=== PATIENT | female | born 1965 | race Caucasian/White ===

== ENCOUNTER 2021-12-07 10:58 | Emergency (ER) | payer MEDICAID, SELFPAY ==
--- NOTE | ~2021-12-07 | XR_ITS ---
EXAMINATION: XR WRIST, LEFT CLINICAL INFORMATION: Left wrist lump and pain anterior distal radius. COMPARISON: None TECHNIQUE: PA, lateral, scaphoid and oblique views of the left wrist. An arrow points to the lateral wrist. FINDINGS: There is no acute fracture or dislocation. The carpal bones are normally aligned. The distal radius and ulna are intact. An ovoid appearing soft tissue density is seen overlying of the lateral cortical margin of the distal radial metaphysis. XR/XR wrist LT min 3V IMPRESSION: 1. No acute osseous abnormality. 2. Possible soft tissue nodule/cyst overlying the distal radius laterally. Correlate with physical exam. This could be further evaluated with targeted soft tissue ultrasound.
[2021-12-07 11:08] VITALS: BP 164/80; PULSE 74; RESP 16; TEMP 36.8; O2SAT 98; BMI 25.9
--- NOTE | 2021-12-07 13:18 | ED.EXTPRO ---
HPI - Extremity Problem General Chief complaint: Extremity Problem Stated complaint: Lump on wrist Time Seen by Provider: 12/07/21 12:35 Source: patient Mode of arrival: ambulatory Limitations: no limitations History of Present Illness HPI Narrative: 56-year-old female with left volar lump on her wrist that started 6 months ago and recently has become much bigger. It is painful. No trauma. Ibuprofen helps. In addition, patient has itchy rash behind both of her ears and her neck. No new soaps, shampoos, laundry detergent, or medicines. Related Data Previous Rx's Medication Instructions Recorded ibuprofen 600 mg tablet 600 mg PO Q8H PRN #30 tab 12/07/21 triamcinolone acetonide 0.5 % 1 appl TOPICAL BID #15 g 12/07/21 topical cream Allergies Allergy/AdvReac Type Severity Reaction Status Date / Time No Known Allergies Allergy Verified 12/07/21 13:19 Review of Systems Constitutional: Constitutional: Denies body ache(s), Denies chills, Denies fatigue, Denies fever(s), Denies headache(s), Denies malaise and Denies weakness Eyes: Eyes: Denies diplopia ENT: Denies vertigo, Denies dizziness, Denies otalgia, Denies headache(s), Denies mouth pain, Denies post nasal drip, Denies sinus pain, Denies sinus pressure, Denies sore throat and Denies throat swelling Cardiovascular: Cardiovascular: Denies chest pain, Denies syncope, Denies leg edema, Denies lightheadedness, Denies Loss of Consciousness, Denies palpitations and Denies dyspnea Respiratory: Respiratory: Denies chest congestion, Denies cough and Denies dyspnea Gastrointestinal: Gastrointestinal: Denies abdominal pain, Denies hematochezia, Denies constipation, Denies diarrhea and Denies vomiting Musculoskeletal: Musculoskeletal: Reports arthralgias Integumentary/Breasts: Skin/Breast: Reports lesions and Reports rash Neurologic: Denies confusion, Denies vertigo, Denies dizziness, Denies syncope, Denies headache(s) and Denies weakness Psychiatric: Psychiatric: Denies anxiety, Denies confusion and Denies depression Endocrine: Endocrine: Denies fatigue and Denies palpitations Allergic/Immunologic: Allergic/Immunologic: Denies throat swelling PMFSH Past Medical History Medical History (Updated 12/07/21 @ 13:45 by NINI Sarmiento) Depressed Thyroid disease Social History Social History Advance Directives: No Advance Directives Information Provided: No Physical Exam Vital Signs: Vital Signs: Last Vital Signs Temp 97.4 F 12/07/21 14:41 Pulse 63 12/07/21 14:41 Resp 16 12/07/21 14:41 BP 157/73 H 12/07/21 14:41 Pulse Ox 98 12/07/21 14:41 BMI result Body Mass Index 25.9 Const: General: No confusion Nutritional Appearance: well nourished Orientation/consciousness: No confusion Limitations: no limitations HEENT: Head: Yes normal to inspection, Yes normocephalic and Yes atraumatic Ears: hearing grossly normal bilaterally, external ears normal, TM's normal bilaterally and EAC's normal General nose exam: Normal external nose present Face and sinus: Yes normal facial exam and Yes sinuses nontender Mouth: Normal oral and palatal mucosa present Throat: Yes posterior oropharynx normal Eyes: Conjunctivae: conjunctivae normal Pupils: Equal, round and reactive pupils present EOM: EOMs intact bilaterally Neck: Neck: Yes full ROM, Yes no lymphadenopathy and Yes supple Resp: Effort & Inspection: normal respiratory effort and able to speak in complete sentences Auscultation: clear to auscultation bilaterally, no crackles, no rales, no rhonchi and no wheezes Cardio: Rate: regular rate Rhythm: regular rhythm Heart sounds: S1 normal heart sound present and S2 normal heart sound present GI: Inspection: Yes normal to inspection Palpation (GI): Soft to palpation, nontender, no guarding and not rigid Percussion: Yes normal to percussion Auscultation: normal bowel sounds Skin: Other: No redness, no swelling, no warmth, to volar surface of left wrist, however there is a fluctuant mass on volar surface of left wrist Neuro: General: No confusion Cranial nerves: Yes Equal, round and reactive pupils present Extrem: Left upper extremity: full ROM, normal capillary refill, no joint enlargement and wrist (mass volar surface left wrist) Psych: Appearance: grossly normal Affect: normal affect Attitude: cooperative Thought process: Normal thought process present Course Course Course Narrative: 56-year-old female presents with a mass on volar surface left wrist; no redness, no swelling, no warmth, to volar surface of left wrist, however there is a fluctuant mass on volar surface of left wrist In addition, patient has scaly. Ache rash bilaterally behind both ears and posterior upper back Triamcinolone cream for years and upper back, counseled patient not to use it on her face. X-ray reveals no fracture, soft tissue cyst.. Appears to be ganglion cyst, will have patient follow-up with Orthopedics Discharge Plan Discharge Clinical Impression: Rash, Ganglion cyst Patient Disposition: Home, Self-Care Instructions: Contact Dermatitis (ED), Ganglion Cysts (ED), Acute Rash (ED), Ganglion Cyst Removal (DC) Additional Instructions: Please call Orthopedics at the following number [phone] I have referred you, they should be calling Ling you as well. Please take ibuprofen that I prescribed for you. For your rash, please apply the cream to the back severe years and the back of your neck. Do not apply this cream to your face as it can cause white spots Prescriptions: New triamcinolone acetonide 0.5 % cream 1 appl topical BID Qty: 15 0RF Rx Instructions: apply to back of ears and back of neck , DO NOT APPLY TO FACE ibuprofen 600 mg tablet 600 mg PO Q8H PRN (Reason: pain) Qty: 30 0RF Referrals: Ziggy Warren MD [Physician] - 2 days
[2021-12-07] MEDS: Ibuprofen 800 MG TABLET PO (13:31)
[2021-12-07 14:41] VITALS: BP 157/73; PULSE 63; RESP 16; TEMP 36.3; O2SAT 98
== END 2021-12-07 15:27 | disposition home or self-care (01) ==
PROVIDERS: Emergency Provider Emergency Medicine
DX: R21 Rash and other nonspecific skin eruption (principal); M67.432 Ganglion, left wrist
CPT/HCPCS: 73110; 99283; 99284

== ENCOUNTER 2022-03-08 19:45 | Emergency (ER) | payer MEDICAID, SELFPAY ==
[2022-03-08 19:48] VITALS: BP 120/72; PULSE 64; RESP 18; TEMP 35.8; O2SAT 97; BMI 25.7
[2022-03-08 20:35] LABS: Appearance Urine CLEAR; Color Urine STRAW; Glucose Urine UA NEG (NEG); Leukocyte Esterase Urine 1+ (NEG); Nitrite Urine NEG (NEG); Specific Gravity - Urine <= 1.005 (1.005-1.025); Urine Blood TRACE (NEG); Urine Ketones NEG (NEG); Urine Protein NEG (NEG-TRACE)
--- NOTE | 2022-03-08 20:37 | ED_ITS ---
HPI - Psych General Chief Complaint: Psychiatric Symptoms Stated Complaint: crisis Time Seen by Provider: 03/08/22 19:48 Source: patient and EMS Limitations: no limitations History of Present Illness HPI Narrative: Patient comes to the emergency room via ambulance complaining of suicidal ideation. Patient states that she is an alcoholic, trying to stop drinking. Last drink was before coming in. Patient states that her brother 2 days ago and that is when her drinking alcohol we started. Patient states that she currently has problems with her current living situation, patient lives with her parents, states that the money for Section 8 housing is not enough to have her own place. Patient states that she has so many problems, has considered ending her life by taking her medications. [facility] went to evaluate the patient at her home, she was Section 12 and brought to the emergency room via ambulance. Related Data Home Medications Medication Instructions Recorded Confirmed No Known Home Meds 03/08/22 03/08/22 Allergies Allergy/AdvReac Type Severity Reaction Status Date / Time No Known Allergies Allergy Verified 12/07/21 13:19 Review of Systems Review of Systems: Constitutional : No Weight loss, No Fever, No Chills, No Night Sweats, No Fatigue, No Malaise ENT/Mouth : No Hearing loss, No Ear Pain, No Nasal Congestion, No Sinus Pain, No Hoarseness, No sore throat, No Rhinorrhea, No Swallowing Difficulty Eyes: No Eye Pain, No Swelling, No Redness, No Foreign Body, No Discharge, No Vision Changes Cardiovascular : No Chest Pain, No SOB, No Dyspnea on Exertion, No Orthopnea, No Edema, No Palpitations Respiratory : No Cough, No Sputum, No Wheezing, No Smoke Exposure, No Dyspnea Gastrointestinal : No Nausea, No Vomiting, No Diarrhea, No Constipation, No abdominal Pain, No Hematochezia, No Melena Genitourinary : no irregular bleeding, No Dysuria, No Urinary Frequency, No Hematuria, No Urinary Incontinence, No Urgency, No Flank Pain, No Urinary Flow Changes, No Hesitancy Musculoskeletal : No joint pain, No Myalgias, No Joint Swelling Skin : No Skin Lesions, No rash Neuro : No Weakness, No Numbness, No Paresthesias, No Loss of Consciousness, No Dizziness, No Headache Psych : Complaining of anxiety and depression, complaining of suicidal ideation, no homicidal ideation Heme/Lymph: No Bruising, No Bleeding,No Lymphadenopathy Endocrine : No Polyuria, No Polydipsia, No Temperature Intolerance [facility] Past Medical History Medical History Depressed Thyroid disease Social History Social History Advance Directives: No Physical Exam Vital Signs: Vital Signs: Last Vital Signs Temp 96.4 F L 03/08/22 19:48 Pulse 64 03/08/22 19:48 Resp 18 03/08/22 19:48 BP 120/72 03/08/22 19:48 Pulse Ox 97 03/08/22 19:48 O2 Del Method 03/08/22 19:48 BMI result Body Mass Index 25.7 Const: Other: Appearance: Alert. Oriented X3. teary Eyes: Pupils equal, round and reactive to light. ENT: Pharynx normal. Neck: Normal inspection. Neck supple. No lymph nodes noted. No crepitus CVS: Normal heart rate and rhythm. Pulses normal. Normal S1 and S2 Respiratory: No respiratory distress. Breath sounds normal. No Wheezing. No rales Abdomen: Soft and nontender. No rigidity. No distention. Skin: Skin warm and dry. Normal skin color. Normal skin turgor. Extremities: No lower extremity edema. No Lacerations. No Rash Neuro: Oriented X 3. No motor deficit. No sensory deficit. Moving all extremities. No slurred speech. CN 2 through 12 grossly intact Psych: calm, cooperative, teary Course Course Course Narrative: patient is on a Section 12, which was started by [facility] in the community. Patient is an inpatient bed search, likely M5 physician observation started at 20:15 Discharge Plan Discharge Clinical Impression: Suicidal ideation Patient Disposition: Still a Patient Prescriptions: No Action No Known Home Meds Rx Instructions: Off her medication for months
[2022-03-08 20:41] LABS: Bacteria Urine 1+ /LPF; Squamous Epithelial Cell Urine 2+ /LPF
[2022-03-08 20:42] LABS: MANUAL DIFF FLAG NO
[2022-03-08 20:43] LABS: Basophils Absolute Auto 0.1 X10*3/uL (0.0-0.2); Basophils Percent Auto 1.3 % (0-2); Eosinophils Absolute Auto 0.3 X10*3/uL (0.0-0.4); Eosinophils Percent Auto 2.9 % (0-4); Hematocrit 49.3 % (37.0-47.0); Hemoglobin 16.3 g/dl (12.0-16.0); Imm Gran Abs Auto 0.03 X10*3/uL (0.00-0.03); Imm Gran Pct Auto 0.3 % (0.0-0.4); Lymphocytes Absolute Auto 4.6 X10*3/uL (1.2-4.9); Lymphocytes Percent Auto 44.4 % (20-40); Mean Corpuscular HGB Conc 33.1 g/dl (31.0-35.0); Mean Corpuscular Hemoglobin 26.4 pg (27.0-33.0); Mean Corpuscular Volume 79.9 fL (80.0-98.0); Monocytes Absolute Auto 0.8 X10*3/uL (0.1-1.2); Monocytes Percent Auto 7.5 % (2-11); Neutrophils Absolute Auto 4.5 x10*3/uL (2.0-8.3); Neutrophils Percent Auto 43.6 % (45-73); Platelet Count 390 X10*3/uL (160-400); Red Blood Count 6.17 X10*6/uL (4.20-5.50); Red Cell Distribution Width 13.5 % (11.0-16.0); White Blood Count 10.4 X10*3/uL (4.8-10.8)
[2022-03-08 20:48] LABS: COVID-19 Test Negative (Negative); IDNOW Serial# 55D5AD1C
[2022-03-08 20:50] LABS: Fentanyl, urine Not Detected (Not Detect)
[2022-03-08 20:57] LABS: Amphetamine Screen Urine Not Detected (Not Detect); Barbiturates, Urine Not Detected (Not Detect); Cannabinoid Screen Urine POSITIVE (Not Detect); Cocaine Screen Urine Not Detected (Not Detect); Opiate Screen Urine Not Detected (Not Detect); Phencyclidine Screen Urine Not Detected (Not Detect)
[2022-03-08 21:07] LABS: Acetaminophen LAB < 1 mcg/mL (<30); Alanine Aminotransferase 19 U/L (0-31); Albumin Level 4.5 g/dL (3.5-5.0); Alkaline Phosphatase 100 U/L (39-117); Anion Gap 15 (12-20); Aspartate Amino Transferase 31 U/L (5-31); Bilirubin Direct < 0.2 mg/dL (0.0-0.5); Bilirubin Total 0.3 mg/dL (0.0-1.0); Blood Urea Nitrogen 4 mg/dL (9-16); Calcium 9.6 mg/dL (8.4-10.2); Carbon Dioxide 21 mmol/L (22-29); Chloride 107 mmol/L (96-108); Creatinine Clr Calc Pharmacy 73.5; Estimated Glomerular Filt Rate > 60; Ethanol 306 mg/dL; Glucose Random 102 mg/dL (60-115); Potassium 4.3 mmol/L (3.3-5.1); Salicylate < 5.0 mg/dL (15-30); Sodium 139 mmol/L (135-145); Total Protein 8.2 g/dL (6.5-8.0)
[2022-03-08] MEDS: LORazepam 1 MG TABLET PO (21:37)
[2022-03-09 06:07] VITALS: BP 124/72; PULSE 65; RESP 16; O2SAT 97
--- NOTE | 2022-03-09 06:45 | PC.NURSE ---
Patient slept through the night, no distress observed/reported, asymptomatic of withdrawal, patient sometime have trouble finding her room, behavior appropriate, Ativan 1 mg po administered at HS with + effect, patient was seen by [facility] at her half-way, disposition is section 12 inpatient bed search, patient is currently not on any medication, will continue to monitor.
--- NOTE | 2022-03-09 07:14 | PC.NURSE ---
patient appears to remain asleep respirations are even and unlabored patient appears in no distress
[2022-03-09 10:20] VITALS: BP 159/87; PULSE 105; RESP 18; TEMP 36.4; O2SAT 97
[2022-03-09] MEDS: Folic Acid 1 MG TABLET PO (10:39)
[2022-03-09] MEDS: LORazepam 1 MG TABLET 2 MG PO ×2 (10:39→13:57)
[2022-03-09] MEDS: Famotidine 20 MG TABLET PO (10:40)
[2022-03-09] MEDS: Thiamine HCL 100 MG TABLET PO (10:40)
--- NOTE | 2022-03-09 10:57 | MHC.CARE ---
Pt cites that she is presently living with her parents and is in the process of trying to secure her own housing.? She reports that she is having difficulty finding affordable housing as her Section 8 voucher does not cover the entirety of the rent and she is presently unemployed and has no source of income.? Pt is in the process of trying to secure welfare benefits. Pt reports that she has been consuming alcoholic beverage to the point of intoxication and did so yesterday.? She stated that she has been filling her days with this lately, and expressed concerns over her increasing alcohol consumption.? She is tearful and sobbing at points when she discusses this.? She denies SI, HI, , AVH, and self-harm urges.? She stated that she did endorse SI yesterday evening but often does so while under the influence of alcoholic beverage.? Pt does not appear to be at risk at this time and could benefit best from an EATs or Detox bed, more so than an inpatient stay on a psychiatric unit.
[2022-03-09 11:48] LABS: Benzodiazepines Screen Urine NOT DETECTED (Not Detect)
--- NOTE | 2022-03-09 12:58 | MHC.RECOVSUP ---
Addendum entered by Jose Gold 03/09/22 19:53: Spoke with [facility] and they don't believe they'll be able to have bed open until 11pm. Suggest calling tomorrow at 8AM. F/U tomorrow Original Note: ? Reason for consult:Recovery Support o Current location: [facility] o Identified substance use concern:ETOH - Withdrawal - Seeking ATS (detox) - Support ? Intervention: o ATS bed search started/completed/in process o Community resources provided o Harm reduction discussion ? Plan: o Bed search in progress to o Patient to follow up with [facility] after discharge ? Additional information:Patient waiting to hear from [facility] for detox
[2022-03-09 13:37] VITALS: RESP 16
[2022-03-09 13:54] VITALS: BP 152/85; PULSE 112; RESP 18; TEMP 37.3; O2SAT 100
--- NOTE | 2022-03-09 13:59 | PC.NURSE ---
Okay to medicate with 2mg PO ativan by RACHEL Altman for withdrawals.
[2022-03-10] MEDS: LORazepam 1 MG TABLET 2 MG PO (03:50)
[2022-03-10 03:53] VITALS: BP 156/90; PULSE 80; RESP 16; O2SAT 99
--- NOTE | 2022-03-10 07:14 | PC.NURSE ---
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
[2022-03-10] MEDS: Folic Acid 1 MG TABLET PO (08:17)
[2022-03-10] MEDS: Thiamine HCL 100 MG TABLET PO (08:18)
--- NOTE | 2022-03-10 08:56 | PC.NURSE ---
Report from [place], pt currently using phone. Calm, and in behavioral control. Plan for pt to go to [facility], CARE team and recovery coaches coordinating d/c per report.
[2022-03-10] MEDS: Acetaminophen 325 MG TABLET 650 MG PO (09:53)
[2022-03-10 10:11] VITALS: BP 126/95; PULSE 71; RESP 18; TEMP 37.8; O2SAT 99
--- NOTE | 2022-03-10 10:15 | PC.NURSE ---
Pt noted to have low grade fever, states she feels ok I'm just cold . Medicated with tylenol for pain & fever, provider aware. Order for covid and flu test obtained.
[2022-03-10 10:41] LABS: COVID-19 Test Negative (Negative); IDNOW Serial# 55D5AD1C; Influenza A Negative (Negative); Influenza B2 Negative (Negative)
[2022-03-10 12:01] LABS: Appearance Urine CLEAR; Color Urine YELLOW; Glucose Urine UA NEG (NEG); Leukocyte Esterase Urine NEG (NEG); Nitrite Urine NEG (NEG); PH 6.5 (5.0-8.0); Specific Gravity - Urine <= 1.005 (1.005-1.025); Urine Blood NEG (NEG); Urine Ketones NEG (NEG); Urine Protein NEG (NEG-TRACE)
[2022-03-10] MEDS: LORazepam 1 MG TABLET PO (12:07)
[2022-03-10] MEDS: Famotidine 20 MG TABLET PO (12:10)
--- NOTE | 2022-03-10 14:00 | MHC.RECOVSUP ---
Recovery Support note: Patient is a 56 year old [place] speaking female who presented to [facility] [place] [place] ED after making SI statements while under the influence of alcohol. Patient was evaluated by CARE Team once sober and referred to the Recovery Support Team for assistance with ATS referrals. This ad copy writer met with patient this morning to discuss substance use and treatment options. Patient reports drinking daily, up to twelve beers, glasses of wine and rum drinks. Patient reports numerous life stressors related to housing and family. Patient continues to express interest in going to ATS. Patient completed intake with [facility] however they feel patient would need EATS bed and they do not have one at this time. Patient was referred to [facility] however it has been several hours without a response. Patient referred to [facility] and accepted for admission. Plan for patient to be transported home via Lyft to get clothes and then go to the facility via Lyft. Discussed case with patient's RN and ED provider.
== END 2022-03-10 14:24 | disposition home or self-care (01) ==
PROVIDERS: Physician Assistant Medical; Emergency Provider Emergency Medicine
DX: R45.851 Suicidal ideations (principal); F10.20 Alcohol dependence, uncomplicated; Y90.8 Blood alcohol level of 240 mg/100 ml or more; F41.9 Anxiety disorder, unspecified; F32.A Depression, unspecified; Z72.89 Other problems related to lifestyle; Z63.4 Disappearance and death of family member; Z20.822 Contact with and (suspected) exposure to COVID-19; Z91.14 Patient's other noncompliance with medication regimen
CPT/HCPCS: 36415; 80048; 80076; 80143; 80179; 80307; 81001; 81003; 82077; 85025; 87502; 87635; 99285

== ENCOUNTER → 2023-02-28 14:24 | Outpatient (BNVA) | payer MEDICAID, SELFPAY | PROVIDERS: PCP Internal Medicine; Visit Provider Orthopaedic Surgery | DX: R22.32 Localized swelling, mass and lump, left upper limb (principal) | CPT/HCPCS: 99202 ==

== ENCOUNTER 2023-03-05 07:03 | Day surgery (SDC) | payer MEDICAID, SELFPAY ==
[2023-03-05] VITALS (7 sets, daily range): BP systolic 138–163; BP diastolic 67–87; PULSE 60–72; RESP 14–18; TEMP 36.1–36.4; O2SAT 98–100; BMI 24.5
--- NOTE | 2023-03-05 | ECG_ITS ---
Test Reason : CHEST PRESSURE Blood Pressure : / mmHG Vent. Rate : 066 BPM Atrial Rate : 066 BPM P-R Int : 166 ms QRS Dur : 082 ms QT Int : 450 ms P-R-T Axes : 053 067 057 degrees QTc Int : 471 ms Normal sinus rhythm Normal ECG No previous ECGs available Referred By: Shila Cancino Electronically Signed By:RONY ISLAS
--- NOTE | 2023-03-05 08:13 | HO.ANESPROP2 ---
[facility] Active Problems Active Problems: All Active Problems (Updated 02/28/23 @ 14:43 by Umair Chase) Mass of left wrist (Acute) Past Medical History Medical History Depressed Thyroid disease Surgical History History of Problems with Anesthesia: No Social History Social History (Updated 02/28/23 @ 14:35 by ZAINA George) Patient Tobacco Use Status: Current someday Tobacco user Tobacco use type: Cigarette Use of substances other than those prescribed or required for medical reasons: Yes Substance Use Frequency: Daily Are you DNR?: No Advance Directives: No Advance Directives Information Provided: Yes Current occupational status: unemployed Current occupation: rt hand Meds Allergies Allergy/AdvReac Type Severity Reaction Status Date / Time No Known Allergies Allergy Verified 02/28/23 14:34 Active Medications: Current Medications Cefazolin Sodium/Dextrose (Ancef) 2 gm in 50 mls @ 100 mls/hr IV PREOP ONE Stop: 03/05/23 08:17 Home Medications Medication Instructions Recorded Confirmed Last Taken Type atorvastatin 10 mg tablet 10 mg PO DAILY 02/28/23 03/05/23 History gabapentin 100 mg capsule 200 mg PO BEDTIME 02/28/23 03/05/23 History levothyroxine 50 mcg tablet 50 mcg PO DAILY 02/28/23 03/05/23 History venlafaxine 75 mg capsule,extended 75 mg PO DAILY 02/28/23 Unknown History release 24 hr clonidine 03/05/23 03/05/23 History Exam Exam Date and Time: March 05, 2023 0813 Height,Weight and Vital Signs: Height 5 ft 4 in Weight 64.864 kg Last Vital Signs Temp 96.9 F 03/05/23 07:39 Pulse 60 03/05/23 07:39 Resp 18 03/05/23 07:39 BP 148/79 H 03/05/23 07:39 Pulse Ox 98 03/05/23 07:39 O2 Del Method Room Air 03/05/23 07:39 Airway Mallampati Class: II TM Dist: >3cm Neck ROM: Full Denture: Upper Loose/Missing/Broken Teeth: Yes, Upper and Lower Heart: RRR Lungs: CTA Assessment and Plan Assessment Anesthesia Assessment: Anesthesia Plan Discussed and Chart Reviewed Final Anesthetic Review History of Problems with Anesthesia: No NPO: Yes ASA Class: II Final Preanesthetic Review: Meds/Allgs Chart Reviewed, Consent Obtained/Reviewed and Anes Risks/Benef Reviewed Patient Risk: Low Procedure Risk: Low Anesthetic Plan Anesthetic Plan: GA Disposition: Standard PACU
--- NOTE | 2023-03-05 09:06 | MHC.SHP ---
Pre-Procedural Eval Section A Date of Service: 03/05/23 The patient is an INPATIENT: No Changes since office visit: No Cold of Flu in the past 2 weeks, No New Medical Problems, No Changes in Medication and No Patient answered all questions The History & Physical has been completed within 30 days and I have reviewed it.: Yes Section B Chief Complaint: Ganglion, left wrist Allergies: Allergies Allergy/AdvReac Type Severity Reaction Status Date / Time No Known Allergies Allergy Verified 02/28/23 14:34 Plan I have reviewed the history and physical and performed a pertinent physical examination on my patient. No changes have occurred unless specified. Time Spent With Patient Time: Total time managing care of this patient today ____ minutes.
--- NOTE | 2023-03-05 09:07 | W.PM.OPN ---
Operative Note Operative Note Date of Service: 03/05/23 Narrative: Operative Note Narrative: Preop diagnosis: 1.Left Volar wrist ganglion Postop diagnosis: Same Procedure: 1. Left Volar wrist ganglion excision Surgeon: Hailee Segovia MD Anesthesia: General Anesthesia Findings: Implants: None Tourniquet time: 14 minutes EBL: 5.0 ml Specimen: Volar wrist ganglion Drains: None Complications: None Disposition: Brought to the recovery room in stable condition Plan: Follow-up in 10-14 days for wound check, suture removal and to check pathology Indications: The patient is 57 years old with a left volar wrist ganglion . The risks and benefits of operative treatment, including but not limited to risk of damage to blood vessels, nerves, tendons, infection, recurrence, persistent pain or numbness, incomplete resolution of preoperative symptoms, or need for further surgery were discussed with the patient and they wished to proceed with surgery. Procedure: Once consent was obtained patient was brought back to the operating suite and placed in the operating table in a supine position. . Perioperative antibiotics and anesthesia was administered by the anesthesia team. A tourniquet was applied to the proximal aspect of the left upper extremity and the limb was prepped and draped in a standard surgical fashion. The limb was elevated exsanguinated with Esmarch bandage and the tourniquet inflated to 250 mm of mercury for a total tourniquet time of 14 minutes. A 2 cm longitudinal incision was made centered over the patient's left volar wrist ganglion. The incision was made through the skin the subcutaneous tissues using a 15. Blade. Careful dissection was then made down to the level of the volar wrist ganglion using tenotomy scissors. the ganglion was carefully dissected free from the surrounding tissues including the flexor carpi radialis tendon sheath using tenotomy and iris scissors. The stalk to the ganglion was then isolated as it passed to the volar aspect of the radiocarpal joint and cauterized using bipolar electrocautery. The ganglion was then removed and placed on the back table to be sent for histopathology. It contained clear viscous fluid consistent with a ganglion. At this point the tourniquet was deflated and hemostasis obtained with a brief period of local pressure and bipolar electrocautery. The wound was copiously irrigated with normal saline. The skin edges were reapproximated with 5-0 nylon suture. The wound was infiltrated with some 1% lidocaine with epinephrine for postop pain control and a sterile dressing was applied. The patient appears to have tolerated the procedure well and with no complications. All digits were well vascularized conclusion of the case.
== END 2023-03-05 11:53 | disposition home or self-care (01) ==
PROVIDERS: PCP Internal Medicine; Visit Provider Orthopaedic Surgery
PROC: (CPT 25111; principal; 2023-03-05 08:40)
DX: M67.432 Ganglion, left wrist (principal); R20.0 Anesthesia of skin; R20.2 Paresthesia of skin; F32.A Depression, unspecified; E07.9 Disorder of thyroid, unspecified; Z79.899 Other long term (current) drug therapy; F17.210 Nicotine dependence, cigarettes, uncomplicated
CPT/HCPCS: 25111; 88304; 88305; 93005; J0690; J1100; J1885; J2250; J2405; J3010

== ENCOUNTER → 2023-03-16 10:18 | Outpatient (BNVA) | payer MEDICAID, SELFPAY | PROVIDERS: PCP Internal Medicine; Visit Provider Orthopaedic Surgery ==

== ENCOUNTER 2023-07-20 11:16 | Outpatient (REF) | payer MEDICAID, SELFPAY ==
[2023-07-20 14:56] LABS: Alanine Aminotransferase 15 U/L (0-31); Albumin Level 4.4 g/dL (3.5-5.0); Alkaline Phosphatase 80 U/L (39-117); Anion Gap 11 (12-20); Aspartate Amino Transferase 31 U/L (5-31); Bilirubin Total 0.3 mg/dL (0.0-1.0); Blood Urea Nitrogen 11 mg/dL (9-16); Calcium 9.8 mg/dL (8.4-10.2); Carbon Dioxide 28 mmol/L (22-29); Chloride 100 mmol/L (96-108); Cholesterol 174 mg/dL (<200); Estimated Glomerular Filt Rate > 60; Glucose Random 84 mg/dL (60-115); HDL Cholesterol 62 mg/dL (>40); LDL Cholesterol Calculated 84 mg/dL (<100); Potassium 4.7 mmol/L (3.3-5.1); Sodium 134 mmol/L (135-145); Total Protein 7.7 g/dL (6.5-8.0); Triglycerides 140 mg/dL (<150)
[2023-07-20 15:01] LABS: TSH reflex Free T4 2.07 uIU/mL (0.32-4.0)
== END 2023-07-20 11:17 | disposition home or self-care (01) ==
LOC: HO.CHCLDS 11:16
PROVIDERS: Visit Provider Internal Medicine
DX: E78.2 Mixed hyperlipidemia (principal); E03.9 Hypothyroidism, unspecified
CPT/HCPCS: 36415; 80053; 80061; 84443

== ENCOUNTER 2024-02-01 09:26 | Outpatient (REF) | payer MEDICAID, SELFPAY ==
[2024-02-01 12:02] LABS: Alanine Aminotransferase 10 U/L (0-31); Albumin Level 4.3 g/dL (3.5-5.0); Alkaline Phosphatase 89 U/L (39-117); Aspartate Amino Transferase 18 U/L (5-31); Bilirubin Direct < 0.2 mg/dL (0.0-0.5); Bilirubin Total 0.2 mg/dL (0.0-1.0); C Reactive Protein < 0.10 mg/dL (< or = 0.50); Lipase 29 U/L (8-78)
[2024-02-01 12:20] LABS: Folate 7.2 ng/mL (> or = 4.0); Vitamin B12 588 pg/mL (200-900)
[2024-02-04 14:28] LABS: H Pylori Breath Test Negative (Negative)
[2024-02-05 16:48] LABS: Vitamin D 25-OH, D2 <4 ng/mL; Vitamin D 25-OH, D3 15 ng/mL; Vitamin D 25-OH, Total 15 ng/mL (30-100)
[2024-02-06 15:03] LABS: Transglutaminase Ab IgG <1.0 U/mL; Transglutaminase IgA <1.0 U/mL
== END 2024-02-01 09:27 | disposition home or self-care (01) ==
LOC: HO.LAB 09:26
PROVIDERS: PCP Internal Medicine; Visit Provider Nurse Practitioner Family
DX: R10.9 Unspecified abdominal pain (principal); K58.9 Irritable bowel syndrome, unspecified; E55.9 Vitamin D deficiency, unspecified; R19.7 Diarrhea, unspecified; R74.01 Elevation of levels of liver transaminase levels; K21.9 Gastro-esophageal reflux disease without esophagitis
CPT/HCPCS: 36415; 80076; 82306; 82607; 82746; 83013; 83690; 86140; 86364; 99212

== ENCOUNTER 2024-02-01 09:26 | Outpatient (AMB) | payer MEDICAID, SELFPAY ==
--- NOTE | 2024-02-01 09:31 | A.OFFVIS_ITS ---
Vital Signs 02/01/24 09:36 Height 5 ft 4 in Weight 122 lb BMI 20.9 BP 102/52 L Blood Pressure Location Lt brachial Position Sitting Pulse 60 Intake Visit Reasons: Colonoscopy w/ post prandial pain & nausea Intake Note: Patient new consult for Colonoscopy and EGD post pain & nausea. 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 female with past medical history of hypercholesteremia, hypothyroidism is here today for pre colonoscopy screening.? Last colonoscopy in 2019 no polyps found. Recommendation was made for patient to return in 7 years for colorectal screening.?? Denies any personal or family history of ga strointestinal disease, colon polyps, or CRC.? Denies history of difficulty with sedation or anesthesia in the past.? Negative for history of sleep apnea.? Denies any history of cardiac, renal, pulmonary, or hepatic disease.?? No history of infectious? diseases like hepatitis A, B, C, HIV or tuberculosis.? Patient is not on any anticoagulation. Patient reports to have epigastric pain postprandially. Constipation and occasional diarrhea postprandially. Patient denies any nausea or vomiting. Reports postprandial abdominal bloating. If no BM for couple days patient feels bloated and reports cramping. PFSH Medical History (Updated 03/16/23 @ 10:28 by Umair Chase) Thyroid disease Depressed Surgical History (Updated 02/01/24 @ 09:46 by Sheron Tadeo) Hx of colonoscopy Social History Patient Tobacco Use Status: Current someday Tobacco user Tobacco use type: Cigarette Current occupational status: unemployed Current occupation: rt hand Review of Systems Const Denies weight gain and Denies weight loss ENT Reports no additional complaints, Denies dysphagia and Denies odynophagia Card Reports no additional complaints Resp Reports no additional complaints GI Reports abdominal pain (LUQ), Denies belching, Denies melena, Reports bloating, Reports constipation, Denies dysphagia, Denies excessive flatus, Denies dyspepsia, Reports heartburn, Denies diarrhea, Reports loose stools, Denies nausea, Denies odynophagia and Denies vomiting Reports no additional complaints Musc Reports no additional complaints Neuro Reports no additional complaints Psych Reports no additional complaints Endo Reports no additional complaints Physical Exam Vital Signs: Last Vital Signs Pulse 60 02/01/24 09:36 BP 102/52 L 02/01/24 09:36 BMI result Body Mass Index 20.9 Const General: healthy appearing, no acute distress and well developed Nutritional Appearance: well nourished Orientation/consciousness: patient oriented x3 Resp Effort & Inspection: normal respiratory effort, able to speak in complete sentences, no tracheal deviation and symmetric chest movement Auscultation: clear to auscultation bilaterally Cardio Rate: regular rate GI Inspection: Yes normal to inspection and No distended Palpation (GI): Soft to palpation, not firm, nontender and No hepatosplenomegaly present Auscultation: normal bowel sounds General: Yes no CVA tenderness Back/Spine/Pelvis Back: no CVA tenderness Skin General skin exam: elasticity normal, turgor normal and dry skin Neuro General: patient oriented x3 Psych Appearance: grossly normal Mental Status: mental status grossly normal Assessment & Plan Assessment & Plan (1) GERD (gastroesophageal reflux disease): Code(s): K21.9 - Gastro-esophageal reflux disease without esophagitis Qualifiers: Esophagitis presence: esophagitis presence not specified Qualified Code(s): K21.9 - Gastro-esophageal reflux disease without esophagitis (2) Postprandial epigastric pain: Code(s): R10.13 - Epigastric pain (3) Postprandial abdominal bloating: Code(s): R14.0 - Abdominal distension (gaseous) (4) Irritable bowel syndrome with both constipation and diarrhea: Code(s): K58.2 - Mixed irritable bowel syndrome Plan Will check for H pylori and treat empirically if positive. Will rule out celiac. Patient admits to have loose stools most likely related to constipation and not enough fiber. We will rule out malabsorption. Check CRP, fecal calprotectin to rule out IBD. Will check lipase and liver panel. Patient will start taking pantoprazole in the morning. Discussed with patient avoiding dietary triggers and late night snacking. Take Citrucel in the morning and senna at bedtime. She is agreeable to this plan and verbalizes understanding of instructions. She was given the opportunity to ask questions and all questions answered. Thank you for allowing me to participate in her care She will return in the office in 5 weeks, sooner on as needed basis. Orders: Orders H Pylori Breath Test 02/01/24 K21.9 - Gastro-esophageal reflux disease without esophagitis Transglutaminase IgA 02/01/24 R10.9 - Unspecified abdominal pain Vitamin B12 and Folate 02/01/24 R19.7 - Diarrhea, unspecified C Reactive Protein 02/01/24 K58.9 - Irritable bowel syndrome without diarrhea Calprotectin, Fecal 02/01/24 R15.9 - Full incontinence of feces Transglutaminase Ab IgG 02/01/24 R10.9 - Unspecified abdominal pain Lipase 02/01/24 R10.9 - Unspecified abdominal pain Liver Panel 02/01/24 R74.01 - Elevation of levels of liver transaminase levels Vitamin D 25-OH (D2 and D3) 02/01/24 E55.9 - Vitamin D deficiency, unspecified Medications: New pantoprazole take one tablet half an hour before breakfast 40 mg PO DAILY 30 tabs 2RF K21.9 - Gastro-esophageal reflux disease without esophagitis methylcellulose (laxative) (Citrucel) take it with full glass of water 500 mg PO DAILY 30 tabs 2RF K59.00 - Constipation, unspecified sennosides (Natural Senna Laxative) 17.2 mg (2 x 8.6 mg) PO BEDTIME 60 tabs 3RF constipation K59.00 - Constipation, unspecified Coding Level of Care Code New Pt Level 4 (36877) Diagnoses Gastroesophageal reflux disease, unspecified whether esophagitis present K21.9 Esophagitis presence: esophagitis presence not specified Postprandial epigastric pain R10.13 Postprandial abdominal bloating R14.0 Irritable bowel syndrome with both constipation and diarrhea K58.2 Time Spent (min) 45 Comment 30 minutes spent with patient and additional 15 minutes spent reviewing her records
[2024-02-01 09:36] VITALS: BP 102/52; PULSE 60; BMI 20.9
== END 2024-02-01 10:24 | disposition home or self-care (01) ==
PROVIDERS: PCP Internal Medicine; Visit Provider Nurse Practitioner Family
DX: K21.9 Gastro-esophageal reflux disease without esophagitis (principal); R10.13 Epigastric pain; R14.0 Abdominal distension (gaseous); K58.2 Mixed irritable bowel syndrome
CPT/HCPCS: 99204

== ENCOUNTER 2024-06-26 09:26 | Day surgery (SDC) | payer MEDICAID, SELFPAY ==
--- NOTE | 2024-06-24 10:27 | P.CONAN_ITS ---
HPI - Anesthesia Eval Consult details Narrative: 58yo F for Upper Endoscopy and Colonoscopy PMFSH Active Problems Active Problems: All Active Problems Ganglion cyst of volar aspect of left wrist (Acute) Mass of left wrist (Acute) Past Medical History Medical History GERD (gastroesophageal reflux disease) Thyroid disease Depressed Surgical History Surgical History Hx of colonoscopy History of Problems with Anesthesia: No Social History Social History Patient Tobacco Use Status: Former Tobacco user Tobacco use type: Cigarette Current occupational status: unemployed Current occupation: [employer] Allergies Allergy/AdvReac Type Severity Reaction Status Date / Time No Known Allergies Allergy Verified 02/01/24 09:30 Home Medications ?Medication ?Instructions ?Recorded ?Confirmed ?Last Taken ?Type atorvastatin 10 mg tablet 10 mg PO DAILY 02/28/23 06/26/24 03/05/23 History gabapentin 100 mg capsule 200 mg PO BEDTIME 02/28/23 06/26/24 03/05/23 History levothyroxine 50 mcg tablet 50 mcg PO DAILY 02/28/23 06/26/24 03/05/23 History venlafaxine 75 mg capsule,extended 75 mg PO DAILY 02/28/23 06/26/24 Unknown History release 24 hr clonidine 03/05/23 06/26/24 History losartan 06/26/24 06/26/24 06/26/24 History Assessment and Plan Assessment Anesthesia Assessment: Chart Reviewed Final Anesthetic Review History of Problems with Anesthesia: No
[2024-06-26 11:18] VITALS: BMI 21.5
[2024-06-26 11:19] VITALS: BP 146/72; PULSE 65; RESP 16; TEMP 36.7; O2SAT 100
[2024-06-26] MEDS: Lactated Ringers 1,000 ML 100 ML IVCONT (11:52)
--- NOTE | 2024-06-26 12:28 | MHC.SHP ---
Pre-Procedural Eval Section A - 24 Hr Update-Section A only Date of Service: 06/26/24 Section B - Complete if H&P > 30 days Chief Complaint: N/V screening Details of Present Illness: Thyroid disease Depressed Surgical History (Updated 02/01/24 @ 09:46 by Sheron Tadeo) Hx of colonoscopy Present Medications: see Short Stay Collaborative assessment Allergies: Allergies Allergy/AdvReac Type Severity Reaction Status Date / Time No Known Allergies Allergy Verified 02/01/24 09:30 Review of Systems Review of Systems Comment: Ten point ROS negative Exam Exam Comment: Gen appear: No acute distress HEENT: no icterus Chest: No overt resp distress Abd: soft, nontender, nondistended Psych: Stable affect, answering questions appropriately Neuro: A/Ox3 noted to move all extremities spontaneously Ext: no peripheral edema Plan Diagnosis/Plan: Unchanged I have reviewed the history and physical and performed a pertinent physical examination on my patient. No changes have occurred unless specified. Time Spent With Patient Time: Total time managing care of this patient today ____ minutes.
--- NOTE | 2024-06-26 12:41 | HO.ANESPROP2 ---
[facility] Active Problems Active Problems: All Active Problems Ganglion cyst of volar aspect of left wrist (Acute) Mass of left wrist (Acute) Past Medical History Medical History GERD (gastroesophageal reflux disease) Thyroid disease Depressed Functional capacity: independent ambulation Family History Family history of problems with anesthesia: No Surgical History Surgical History Hx of colonoscopy History of Problems with Anesthesia: No Social History Social History Patient Tobacco Use Status: Former Tobacco user Tobacco use type: Cigarette Use of substances other than those prescribed or required for medical reasons: Yes Substance Use Type Other:: last used last night Substance Use Frequency: Daily Are you DNR?: No Advance Directives: No Advance Directives Information Provided: Yes Current occupational status: unemployed Current occupation: rt hand Meds Allergies Allergy/AdvReac Type Severity Reaction Status Date / Time No Known Allergies Allergy Verified 02/01/24 09:30 Active Medications: Current Medications Lactated Ringer's (Lr) 1,000 mls @ 100 mls/hr IVCONT .Q10H ESTHELA Last Admin: 06/26/24 11:52 Dose: 100 mls/hr Home Medications ?Medication ?Instructions ?Recorded ?Confirmed ?Last Taken ?Type atorvastatin 10 mg tablet 10 mg PO DAILY 02/28/23 06/26/24 03/05/23 History gabapentin 100 mg capsule 200 mg PO BEDTIME 02/28/23 06/26/24 03/05/23 History levothyroxine 50 mcg tablet 50 mcg PO DAILY 02/28/23 06/26/24 03/05/23 History venlafaxine 75 mg capsule,extended 75 mg PO DAILY 02/28/23 06/26/24 Unknown History release 24 hr clonidine 03/05/23 06/26/24 History losartan 06/26/24 06/26/24 06/26/24 History Exam Height,Weight and Vital Signs: Height 5 ft 4 in Weight 56.699 kg Last Vital Signs Temp 98.1 F 06/26/24 11:19 Pulse 65 06/26/24 11:19 Resp 16 06/26/24 11:19 BP 146/72 H 06/26/24 11:19 Pulse Ox 100 06/26/24 11:19 O2 Del Method Room Air 06/26/24 11:19 Airway Mallampati Class: III TM Dist: >3cm Neck ROM: Full Denture: Upper and Lower Heart: RRR Lungs: CTA Assessment and Plan Assessment Anesthesia Assessment: Anesthesia Plan Discussed, Smoking Cess. Discussed and Chart Reviewed Final Anesthetic Review Family History of Problems with Anesthesia: No History of Problems with Anesthesia: No NPO: Yes ASA Class: II Final Preanesthetic Review: Meds/Allgs Chart Reviewed, Consent Obtained/Reviewed and Anes Risks/Benef Reviewed Patient Risk: Low Procedure Risk: Low Anesthetic Plan Anesthetic Plan: MAC: Disposition: Standard PACU
--- NOTE | 2024-06-26 13:42 | P.OPN-COLO_ITS ---
Colonoscopy Operative Note Operative Note Date of Service: 06/26/24 Narrative: Procedure: Upper endoscopy and colonoscopy Indication: Abd pain, N,V, screening Endoscopist: Toña Tidwell MD Anesthesia Provider: Dr Shy Mckenzie Anesthesia type: MAC Instrument: [id number] and [id number] EGD Procedure:?? The procedure, indications, preparation and potential complications were reviewed with the patient, who indicated understanding and gave written informed consent to proceed. The endoscope was introduced through the mouth, and advanced to the 2nd part of the duodenum. The mucosa was carefully examined on slow withdrawal of the endoscope. The patient tolerated the procedure well. There were no immediate complications.? EGD Findings:? * Esophagus:? Normal esophageal mucosa was noted. The Z-line was at 40 cm. Cold forceps biopsies were taken from lower esophagus. * Stomach: Localized erythema and erosions in the proximal fundus along the greater curvature. Retroflexion was performed in the cardia. Due to the atypical location and pattern of gastritis, [place] protocol mapping biopsies were obtained. * Duodenum:? Mild erythema and edema noted in duodenal sweep. Cold forceps biopsies were taken from the duodenal bulb and 2nd portion of the duodenum to rule out celiac sprue. Colonoscopy Procedure:? The patient was then turned for the colonoscopy. A digital rectal exam was performed which was normal.? A distal attachment cap was affixed to the tip of the scope and the colonoscope was then inserted through the anus and advanced through the colon and advanced to the cecum at 75 cm and terminal ileum.? Appendiceal orifice and ileocecal valve were identified. Mucosa was carefully examined under high definition white light as the instrument was slowly withdrawn in a retrograde panoramic fashion. Retroflexion was performed in r ectum. The procedure was not difficult. The quality of the prep was BBPS: 2+2+3 = adequate Withdrawal time 9 minutes Limitations: No limitations Findings: Mucosa: 15 mm AVM noted in cecum just above appendiceal orifice. Due to non- availability of APC, this was ablated with cautery using the tip of a hot snare on soft-coag 3/20 settings. Remaining mucosa was normal. Protruding lesions: * Medium internal hemorrhoids without stigmata of recent bleeding. Impression: 1. Normal esophagus (biopsy) 2. Localized gastritis of proximal body (biopsy) 3. Duodenitis (biopsy) 4. Cecal AVM 5. Internal hemorrhoids Recommendations:?? * Increase protonix to BID * Follow-up path results * Avoid smoking and NSAIDs * H Pylori treatment if biopsies + * Repeat colonoscopy for CRC screening in 10 years.
[2024-06-26 13:46] VITALS: BP 125/62; PULSE 100; RESP 16; TEMP 36.1; O2SAT 100
[2024-06-26 14:01] VITALS: BP 166/67; PULSE 72; RESP 18; TEMP 36.4; O2SAT 100
--- NOTE | 2024-06-26 14:49 | HO.POSTANES ---
Post Anesthesia Evaluation Post Anesthesia Evaluation Date of Service: 06/26/24 Vital Signs: Vital Signs Temp Pulse Resp BP Pulse Ox O2 Del Method 06/26/24 14:01 97.5 F 72 18 166/67 H 100 Room Air 06/26/24 13:46 97 F 100 16 125/62 100 Room Air 06/26/24 11:19 98.1 F 65 16 146/72 H 100 Room Air Anesthesia: Monitored Mental Status: Awake Pain Control: Satisfactory Nausea/Vomiting: None Hydration: Adequate Anesthesia-Related Issues: No Anes. Related Issues
== END 2024-06-26 14:37 | disposition home or self-care (01) ==
PROVIDERS: PCP Internal Medicine; Visit Provider Internal Medicine
PROC: (CPT 43239; principal; 2024-06-26 13:00)
DX: K29.60 Other gastritis without bleeding (principal); K29.80 Duodenitis without bleeding; K21.9 Gastro-esophageal reflux disease without esophagitis; Z12.11 Encounter for screening for malignant neoplasm of colon; K55.20 Angiodysplasia of colon without hemorrhage; K64.8 Other hemorrhoids; K58.2 Mixed irritable bowel syndrome; R14.0 Abdominal distension (gaseous); E78.00 Pure hypercholesterolemia, unspecified; E03.9 Hypothyroidism, unspecified; E55.9 Vitamin D deficiency, unspecified; F17.210 Nicotine dependence, cigarettes, uncomplicated; Z79.02 Long term (current) use of antithrombotics/antiplatelets; Z79.899 Other long term (current) drug therapy
CPT/HCPCS: 43239; 45388; 88305; 88313; 88342; J2003; J2704

== ENCOUNTER → 2024-06-26 09:26 | Outpatient (BNV) | payer MEDICAID, SELFPAY | PROVIDERS: PCP Internal Medicine; Visit Provider Internal Medicine | DX: Z12.11 Encounter for screening for malignant neoplasm of colon (principal); Q27.33 Arteriovenous malformation of digestive system vessel; K64.8 Other hemorrhoids; R11.2 Nausea with vomiting, unspecified; K29.70 Gastritis, unspecified, without bleeding; K29.80 Duodenitis without bleeding | CPT/HCPCS: 43239; 45388 ==

== ENCOUNTER 2024-07-11 12:52 | Outpatient (AMB) | payer MEDICAID, SELFPAY ==
--- NOTE | 2024-07-11 12:59 | A.OFFVIS_ITS ---
Vital Signs 07/11/24 13:01 Height 5 ft 4 in Weight 132 lb 4.438 oz BMI 22.7 BP 127/59 L Blood Pressure Location Lt brachial Position Sitting Pulse 61 Intake Visit Reasons: s/p egd/colon Intake Note: Jamia presents in the office as a follow up EGD and COLO. CC: She states that she wants to know results. Gaining weight and states that she was under a lot of stress the last month. 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 Will rule out celiac. Patient admits to have loose stools most likely related to constipation and not enough fiber. We will rule out malabsorption. Check CRP, fecal calprotectin to rule out IBD. Will check lipase and liver panel. Patient will start taking pantoprazole in the morning. Discussed with patient avoiding dietary triggers and late night snacking. Take Citrucel in the morning and senna at bedtime. She is agreeable to this plan and verbalizes understanding of instructions. She was given the opportunity to ask questions and all questions answered. ? Thank you for allowing me to participate in her care She will return in the office in 5 weeks, sooner on as needed basis. Orders Orders H Pylori Breath Test 02/01/24 K21.9 Transglutaminase IgA 02/01/24 R10.9 Vitamin B12 and Folate 02/01/24 R19.7 C Reactive Protein 02/01/24 K58.9 Calprotectin, Fecal 02/01/24 R15.9 Transglutaminase Ab IgG 02/01/24 R10.9 Lipase 02/01/24 R10.9 Liver Panel 02/01/24 R74.01 Vitamin D 25-OH (D2 and D3) 02/01/24 E55.9 Medications New pantoprazole take one tablet half an hour before breakfast 40 mg PO DAILY 30 tabs 2RF K21.9 methylcellulose (laxative) (Citrucel) take it with full glass of water 500 mg PO DAILY 30 tabs 2RF K59.00 sennosides (Natural Senna Laxative) 17.2 mg (2 x 8.6 mg) PO BEDTIME 60 tabs 3RF constipation K59.00 ENDOSCOPY AND COLONOSCOPY EGD Findings:? * Esophagus:? Normal esophageal mucosa was noted. The Z-line was at 40 cm. Cold forceps biopsies were taken from lower esophagus. * Stomach: Localized erythema and erosions in the proximal fundus along the greater curvature. Retroflexion was performed in the cardia. Due to the atypical location and pattern of gastritis, [place]y protocol mapping biopsies were obtained. * Duodenum:? Mild erythema and edema noted in duodenal sweep. Cold forceps biopsies were taken from the duodenal bulb and 2nd portion of the duodenum to rule out celiac sprue. Colonoscopy Procedure:? The patient was then turned for the colonoscopy. A digital rectal exam was performed which was normal.? A distal attachment cap was affixed to the tip of the scope and the colonoscope was then inserted through the anus and advanced through the colon and advanced to the cecum at 75 cm and terminal ileum.? Appendiceal orifice and ileocecal valve were identified. Mucosa was carefully examined under high definition white light as the instrument was slowly withdrawn in a retrograde panoramic fashion. Retroflexion was performed in rectum. The procedure was not difficult. The quality of the prep was BBPS: 2+2+3 = adequate Withdrawal time 9 minutes Limitations: No limitations Findings: Mucosa: 15 mm AVM noted in cecum just above appendiceal orifice. Due to non- availability of APC, this was ablated with cautery using the tip of a hot snare on soft-coag 3/20 settings. Remaining mucosa was normal. Protruding lesions: * Medium internal hemorrhoids without stigmata of recent bleeding. Impression: 1. Normal esophagus (biopsy) 2. Localized gastritis of proximal body (biopsy) 3. Duodenitis (biopsy) 4. Cecal AVM 5. Internal hemorrhoids Recommendations:?? * Increase protonix to BID * Follow-up path results * Avoid smoking and NSAIDs * H Pylori treatment if biopsies + * Repeat colonoscopy for CRC screening in 10 years. PATHOLOGY RESULTS Diagnosis A. Duodenum, biopsy: Duodenal mucosa within normal limits; preserved villous architecture and no increased intraepithelial lymphocytes seen. B. Stomach, antrum greater curvature, biopsy: Gastric antral mucosa within normal limits; negative for Helicobacter pylori, intestinal metaplasia and dysplasia. C. Stomach, antrum lesser curvature, biopsy: Gastric antral mucosa within normal limits; negative for Helicobacter pylori, intestinal metaplasia and dysplasia. D. Stomach, incisura, biopsy: Gastric antral mucosa within normal limits; negative for Helicobacter pylori, intestinal metaplasia and dysplasia. E. Stomach, body greater curvature, biopsy: Gastric body mucosa within normal limits; negative for Helicobacter pylori, intestinal metaplasia and dysplasia. F. Stomach, body lesser curvature, biopsy: Gastric body mucosa within normal limits; negative for Helicobacter pylori, intestinal metaplasia and dysplasia. G. Esophagus, lower, biopsy: Squamous mucosa within normal limits; negative for inflammation (including intraepithelial eosinophils), fungal organisms, intestinal metaplasia and dysplasia. H. Esophagus, middle, biopsy: Squamous mucosa within normal limits; negative for inflammation (including intraepithelial eosinophils), fungal organisms, intestinal metaplasia and dysplasia TODAY'S VISIT Patient is here today for follow-up and to discuss upper endoscopy and colonoscopy results. Patient denies any ill effects from the prep, anesthesia or procedure itself. Patient reports to be feeling much better since the last time I have seen her. Patient started taking pantoprazole daily, however after endoscopy and colonoscopy dose increase to twice a day. Patient is tolerating it well. Denies any dyspepsia, dysphagia or odynophagia. Patient reports to have a increase in appetite. Weight gain of 10 lb since January. Patient no longer has loose stools. Denies melena, hematochezia, unintentional weight loss or ribbon like stools. Patient is moving her bowels better. Taking Citrucel daily and changed her diet. Patient no longer is drinking alcohol. Colonoscopy without polyps, cecal AVM found, PFSH Medical History GERD (gastroesophageal reflux disease) Thyroid disease Depressed Surgical History (Updated 07/11/24 @ 13:01 by GUALBERTO Back) History of esophagogastroduodenoscopy (EGD) Hx of colonoscopy Social History Patient Tobacco Use Status: Former Tobacco user Tobacco use type: Cigarette Current occupational status: unemployed Current occupation: rt hand Review of Systems Const Denies weight gain and Denies weight loss ENT Reports no additional complaints, Denies dysphagia and Denies odynophagia Card Reports no additional complaints Resp Reports no additional complaints GI Denies abdominal pain, Denies belching, Denies melena, Denies bloating, Denies change in bowel habits, Denies constipation, Denies dysphagia, Denies excessive flatus, Denies dyspepsia, Reports heartburn (Improved), Denies diarrhea, Denies loose stools, Denies nausea, Denies odynophagia and Denies vomiting Reports no additional complaints Musc Reports no additional complaints Neuro Reports no additional complaints Psych Reports no additional complaints Endo Reports no additional complaints Physical Exam Vital Signs: Last Vital Signs Pulse 61 07/11/24 13:01 BP 127/59 L 07/11/24 13:01 BMI result Body Mass Index 22.7 Const General: healthy appearing, no acute distress and well developed Nutritional Appearance: well nourished Orientation/consciousness: patient oriented x3 Resp Effort & Inspection: normal respiratory effort, able to speak in complete sentences, no tracheal deviation and symmetric chest movement Auscultation: clear to auscultation bilaterally Cardio Rate: regular rate GI Inspection: Yes normal to inspection and No distended Palpation (GI): Soft to palpation, not firm, nontender and No hepatosplenomegaly present Auscultation: normal bowel sounds General: Yes no CVA tenderness Back/Spine/Pelvis Back: no CVA tenderness Skin General skin exam: elasticity normal, turgor normal and dry skin Neuro General: patient oriented x3 Psych Appearance: grossly normal Mental Status: mental status grossly normal Results Reviewed Results Reviewed: Laboratory Tests 08/29/19 02/01/24 Unknown 10:45 Total Bilirubin 0.2 AST 18 ALT 10 Alkaline Phosphatase 89 C-Reactive Protein < 0.10 Lipase 29 Vitamin B12 588 25-OH Vitamin D Total 15 L Folate 7.2 Stool Calprotectin 32.0 Tiss Transglutamin IgG <1.0 Tiss Transglutamin IgA <1.0 Assessment & Plan Assessment & Plan (1) GERD (gastroesophageal reflux disease): Code(s): K21.9 - Gastro-esophageal reflux disease without esophagitis Qualifiers: Esophagitis presence: without esophagitis Qualified Code(s): K21.9 - Gastro-esophageal reflux disease without esophagitis (2) Postprandial epigastric pain: Code(s): R10.13 - Epigastric pain (3) Postprandial abdominal bloating: Code(s): R14.0 - Abdominal distension (gaseous) (4) Irritable bowel syndrome with both constipation and diarrhea: Code(s): K58.2 - Mixed irritable bowel syndrome (5) Status post colonoscopy: Code(s): Z98.890 - Other specified postprocedural states Plan Continue pantoprazole twice a day. Avoid dietary triggers and late night snacking. Staying upright for minimum 3 hours after meals discussed with patient. High-fiber diet. Continue fiber daily. Follow-up in 3 months, sooner on as needed basis. Patient is agreeable to this plan and verbalizes understanding of instructions. She was given the opportunity to ask questions and all questions answered. Thank you for allowing me to participate in her care Medications: New methylcellulose (laxative) (Citrucel) take it with full glass of water 500 mg PO DAILY 90 tabs 2RF K59.00 - Constipation, unspecified Refilled pantoprazole 40 mg PO BID 30 tabs 2RF K21.9 - Gastro-esophageal reflux disease without esophagitis Coding Level of Care Code Est Pt Level 3 (33397) Diagnoses Gastroesophageal reflux disease without esophagitis K21.9 Esophagitis presence: without esophagitis Postprandial epigastric pain R10.13 Postprandial abdominal bloating R14.0 Irritable bowel syndrome with both constipation and diarrhea K58.2 Status post colonoscopy Z98.890 Time Spent (min) 30 Comment 20 minutes spent with patient and additional 10 minutes spent reviewing her records
[2024-07-11 13:01] VITALS: BP 127/59; PULSE 61; BMI 22.7
== END 2024-07-11 13:21 | disposition home or self-care (01) ==
LOC: HO.HGI 12:53
PROVIDERS: PCP Internal Medicine; Visit Provider Nurse Practitioner Family
DX: K21.9 Gastro-esophageal reflux disease without esophagitis (principal); R10.13 Epigastric pain; R14.0 Abdominal distension (gaseous); K58.2 Mixed irritable bowel syndrome; Z98.890 Other specified postprocedural states
CPT/HCPCS: 99213

== ENCOUNTER → 2024-07-11 12:52 | Outpatient (BNVA) | payer MEDICAID, SELFPAY | PROVIDERS: PCP Internal Medicine; Visit Provider Nurse Practitioner Family | DX: K21.9 Gastro-esophageal reflux disease without esophagitis (principal); K58.2 Mixed irritable bowel syndrome; R10.13 Epigastric pain; R14.0 Abdominal distension (gaseous); Z98.890 Other specified postprocedural states | CPT/HCPCS: 99212 ==

== ENCOUNTER 2024-07-23 09:58 | Outpatient (REF) | payer MEDICAID, SELFPAY ==
[2024-07-23 14:24] LABS: Basophils Absolute Auto 0.1 X10*3/uL (0.0-0.2); Basophils Percent Auto 0.9 % (0-2); Eosinophils Absolute Auto 0.3 X10*3/uL (0.0-0.4); Eosinophils Percent Auto 2.9 % (0-4); Hematocrit 39.7 % (37.0-47.0); Hemoglobin 12.7 g/dl (12.0-16.0); Imm Gran Abs Auto 0.02 X10*3/uL (0.00-0.03); Imm Gran Pct Auto 0.2 % (0.0-0.4); Lymphocytes Absolute Auto 3.5 X10*3/uL (1.2-4.9); Lymphocytes Percent Auto 39.1 % (20-40); MANUAL DIFF FLAG NO; Mean Corpuscular Hemoglobin 26.6 pg (27.0-33.0); Mean Corpuscular Volume 83.1 fL (80.0-98.0); Mean Platelet Volume 11.5 fL (9.4-12.3); Monocytes Absolute Auto 0.7 X10*3/uL (0.1-1.2); Monocytes Percent Auto 7.2 % (2-11); Neutrophils Absolute Auto 4.5 x10*3/uL (2.0-8.3); Neutrophils Percent Auto 49.7 % (45-73); Platelet Count 322 X10*3/uL (160-400); Red Blood Count 4.78 X10*6/uL (4.20-5.50); Red Cell Distribution Width 13.6 % (11.0-16.0)
[2024-07-23 15:05] LABS: Anion Gap 12 (12-20); Blood Urea Nitrogen 7 mg/dL (9-16); Calcium 10.1 mg/dL (8.4-10.2); Carbon Dioxide 27 mmol/L (22-29); Chloride 103 mmol/L (96-108); Cholesterol 241 mg/dL (<200); Estimated Glomerular Filt Rate > 60; Glucose Random 69 mg/dL (60-115); HDL Cholesterol 41 mg/dL (>40); LDL Cholesterol Calculated 129 mg/dL (<100); Potassium 4.8 mmol/L (3.3-5.1); Sodium 137 mmol/L (135-145); TSH reflex Free T4 2.18 uIU/mL (0.32-4.0); Triglycerides 358 mg/dL (<150)
== END 2024-07-23 09:59 | disposition home or self-care (01) ==
LOC: HO.CHCLDS 09:58
PROVIDERS: Visit Provider Internal Medicine
DX: E78.2 Mixed hyperlipidemia (principal)
CPT/HCPCS: 36415; 80048; 80061; 84443; 85025

== ENCOUNTER 2025-01-07 13:17 | Outpatient (AMB) | payer MEDICAID, SELFPAY ==
[2025-01-07 13:20] VITALS: BMI 22.7
--- NOTE | 2025-01-07 13:20 | A.OFFVIS_ITS ---
Vital Signs 01/07/25 13:20 Height 5 ft 4 in Weight 132 lb BMI 22.7 Intake Visit Reasons: New prob Right wrist ganglion cyst Intake Note: Jamia 59 yr old female presents today for for a new problem visit for her right volar wrist ganglion. States she noticed a cyst about 7 months ago and has increase in size. States this cause her pain, numbness, tingling and joint pain. Reports daily pain and weakness. She explains her hands go numb and is constant through out the day and its worse at night time. No EMG done. S/P excision left volar ganglion exc DOS: 03/05/[address] Segovia. States she noticed her cyst is growing back. Allergies No Known Allergies Allergy (Verified 01/07/25 14:00) HPI HPI New prob Right wrist ganglion cyst: Details: Jamia is a 59 year old right hand dominant woman who presents with complaints of a right volar wrist mass. She complains of a mass on the volar aspect of her right wrist, which has been present for ~7 months now. She also complains of numbness & tingling in both of her hands. Symptoms i ntermittent, but daily, worse at night. She also complains of generalized finger pain, worse with activities. She has a Hx of a left volar wrist ganglion excision, DOS: 03/05/23. She is worried this is coming back. [facility] Medical History (Updated 01/07/25 @ 14:17 by Umair Chase) GERD (gastroesophageal reflux disease) Thyroid disease Depressed Surgical History History of esophagogastroduodenoscopy (EGD) Hx of colonoscopy Social History Patient Tobacco Use Status: Former Tobacco user Tobacco use type: Cigarette Current occupational status: unemployed Current occupation: rt hand Review of Systems Const All systems reviewed & are unremarkable except as noted in HPI and below Physical Exam Vital Signs: BMI result Body Mass Index 22.7 Const General: cooperative, healthy appearing and no acute distress Orientation/consciousness: patient oriented x3 HEENT Head: Yes normocephalic and Yes atraumatic Eyes EOM: EOMs intact bilaterally Resp Effort & Inspection: normal respiratory effort and able to speak in complete sentences Cardio Jugular venous distension: no JVD Skin General skin exam: turgor normal Rashes: no rashes Neuro General: patient oriented x3 Extrem Other: Evaluation of Left Upper Extremity: The patient is alert, oriented, and in no acute distress Neuro: Median, Ulnar, Radial nerves motor and sensory intact and sensation is normal to the tips of all digits Vascular: Cap refill brisk ROM: She can make a fist and extend all her digits Skin: No lacerations or abrasions. General: No Ecchymosis. No Erythema or evidence of infection. Generalized pain in multiple DIP joints, her right middle, ring, and small fingers, and her left small finger There is a mass on the volar aspect of her right wrist measuring ~1cm in diameter. Most consistent with a ganglion NO RECURRENCE of L VWG Psych Appearance: grossly normal Affect: normal affect Attitude: cooperative Assessment & Plan Assessment & Plan (1) Numbness and tingling in both hands: Code(s): R20.0 - Anesthesia of skin; R20.2 - Paresthesia of skin Category: Medical (2) Ganglion cyst of volar aspect of right wrist: Code(s): M67.431 - Ganglion, right wrist Category: Medical Plan Assessment & Plan: 1. Bilateral hand numbness Symptoms intermittent, but daily, worse at night This is her chief complaint today I ordered a NCS to assess for peripheral nerve compression She will follow up when completed for review 2. Right volar wrist ganglion Measuring ~1cm in diameter We briefly discussed treatment options today in clinic I recommend we delay any surgical intervention until after her NCS has been reviewed 3. Bilateral hand pain In multiple DIP joints Likely secondary to osteoarthritis, radiographs needed to confirm 4. Left volar wrist ganglion, S/P excision DOS: 03/05/23 resolved Scribed for Hailee Segovia MD by Umair Chase, medical record retrieval specialist, on 01/07/25 at 2:15 PM, EST. Orders: Orders NE nerve conduction velocity Today R20.0 - Anesthesia of skin, R20.2 - Paresthesia of skin Scribe Plan - Not visible on output: Scribed for Hailee Segovia MD by Umair Chase medical record retrieval specialist, on [ ] at [ ], EST. Coding Level of Care Code Est Pt Level 4 (73149) Diagnoses Numbness and tingling in both hands R20.0; R20.2 Ganglion cyst of volar aspect of right wrist M67.431
--- OUTSIDE RECORDS SUMMARY | 2025-01-07 14:36 | XMS_ITS | Clinical Summary ---
Author Organization [employer] Address [address] [facility] 7t [place] [address] Care Team Providers Care Volumetric Weigher Name Role Phone Tyrone Pugh MD Primary Care Prov ider Allergies No known active allergies Medications venlafaxine (Effexor) 100 MG tablet Take 100 mg by mouth in the morning. 2 Active cloNIDine (Catapres) 0.1 MG tablet Take 0.1 mg by mouth if needed in the morning, at noon, in the evening, and at bedtime. 3 Active Blood Pressure kitIndications:Elev ated blood pressure reading 1 Units in the morning. 1 kit 3 Active pantoprazole (ProtoNix) 40 MG EC tablet Take 1 tablet by mouth Once per day. 4 Active gabapentin (Neurontin) 600 MG tablet Take 1 tablet by mouth 3 times daily. Active melatonin 5 MG tablet Take 2 tablets by mouth at bedtime. Active traZODone (Desyrel) 50 MG tablet Take 0.5-1 tablets by mouth if needed at bedtime for sleep. Active Diclofenac Sodium (Voltaren) 1 % gel Use topical BID 100 g 3 5 Active losartan (Cozaar) 50 MG tablet Take 1 tablet (50 mg) by mouth Once per day. 90 tablet 3 5 12/09/19 26 Active levothyroxine (Synthroid, Levoxyl) 75 MCG tabletIndications:A cquired hypothyroidism Take 1 tablet by mouth every day 90 tablet 3 5 Active buPROPion SR (Wellbutrin SR) 100 MG 12 hr tablet Take 100 mg by mouth Once per day. Do not crush, chew, or split. Active atorvastatin (Lipitor) 40 MG tabletIndications:M ixed hyperlipidemia Take 1 tablet (40 mg) by mouth Once per day. 90 tablet 3 5 12/09/19 26 Active Active Problems Problem Noted Date Diagnosed Date Hip pain, chronic, left 08/22/2024 Primary hypertension 02/11/2024 Assessment & Plan (07/23/2024 10:05 AM EST): Controlled on losartan 50mg, keep bp log, keep low sodium diet and exercise as tolerated, follow up in 3 months Assessment & Plan (04/10/2024 1:44 PM EDT): Controlled, continue low sodium diet and exercise as tolerated, bp target <140/90, continue losartan 50mg Assessment & Plan (02/11/2024 2:21 PM EDT): Uncontrolled, she has not been monitoring it at home, will start on losartan, keep low sodium diet and follow up in 1 month Screening for cervical cancer 09/23/2023 Assessment & Plan (09/23/2023 7:26 PM EST): Will place referral for pap smear Screening for colon cancer 09/23/2023 Assessment & Plan (09/23/2023 7:30 PM EST): Done on 12/2019 to be repeated in 7 years Hospital discharge follow-up 09/19/2023 Assessment & Plan (09/19/2023 12:27 PM EST): Patient was seen at [facility] on 09/13 due to colitis. Was discharged home to complete oral antibiotics (cipro/flagyl). Patient denied fever/chills, abdominal pain, diarrhea. She had a colonoscopy done on 2019. Reviewed lifestyle modifications Elevated blood pressure reading 05/23/2023 Assessment & Plan (05/23/2023 12:24 PM EDT): Controlled, refers was related to anxiety, home reading have been at target, reinforced low sodium diet. Continue bp monitoring if bp >140/90 call back Mass of left wrist 04/13/2023 Toe pain, left 04/13/2023 Assessment & Plan (04/13/2023 2:41 PM EDT): Patient with swelling on L 5th toe. No induration or erythema upon examination with normal pulses, flexion, and extension of ankle. Recommended soaking in cold water for 15 mins x3 a day and elevating foot over heart when possible to reduce liquid. Will send for xray. Mixed hyperlipidemia 12/22/2022 Assessment & Plan (08/28/2024 9:50 AM EST): Patient refers taking atorvastatin 20mg daily, will increase dose to 40mg, continue diet and exercise as discussed cvd risk 10.4% in 10 years Assessment & Plan (07/23/2024 10:06 AM EST): On atorvastatin, no changes will be made, new labs ordered for guidance of therapy Assessment & Plan (02/11/2024 2:22 PM EDT): On atorvastatin 20mg, will order new labs for guidance of therapy Assessment & Plan (09/23/2023 7:22 PM EST): On atorvastatin 20mg, refers taking it daily, missing a few doses, will order new labs for guidance of therapy Assessment & Plan (12/22/2022 11:40 AM EDT): On atorvastatin 20mg, will order new labs for guidance of therapy, no side effects reported Acquired hypothyroidism 12/22/2022 Assessment & Plan (07/23/2024 10:05 AM EST): On levothyroxine, labs not done, will follow up result to determine if adjustment needed Assessment & Plan (02/11/2024 2:21 PM EDT): New labs will be ordered for guidance of therapy Assessment & Plan (09/23/2023 7:21 PM EST): Clinically euthyroid will order new labs for guidance of therapy Assessment & Plan (05/23/2023 12:24 PM EDT): Clinically and chemically euthyroid, continue levothyroxine Assessment & Plan (12/22/2022 11:39 AM EDT): Will place order for new labd for guidance of therapy, she is on levothyroxine 75mcg, clinically euthyroid History of Helicobacter pylori infection 023 Assessment & Plan (12/22/2022 11:46 AM EDT): Patient is presenting with abdominal pain, fullness, reflux, will order pylori test to evaluate for reinfection Trigger middle finger of right hand 12/22/2022 Assessment & Plan (12/22/2022 11:47 AM EDT): Will refer to hand surgery for evaluation Ganglion cyst of tendon sheath of left hand 12/09 Assessment & Plan (12/22/2022 11:48 AM EDT): Patient refer the cyst has not resolved and she continue with pain, will refer to hand surgery for evaluation Mood disorder 01/28/2019 Encounters Date Type Department Care Team Description 12/08/2024 1:30 PM EDT Telemedicine [facility] MED & PEDS [address] [place] [address] Tyrone Pugh MD Acquired hypothyroidism (Primary Dx); Mixed hyperlipidemia; Encounter for screening mammogram for malignant neoplasm of breast; Screening for cervical cancer 12/08/2024 Travel 12/04/2024 Telephone [facility]ED[facility] [address] [place] [address] Tyrone Pugh MD 11/28/2024 2:20 PM EDT Office Visit [facility] [address] [place] [address] Clementine Moreland MD Carpal tunnel syndrome on both sides (Primary Dx) 11/28/2024 Travel 11/28/[address] [facility] MEDICINE [address] [place] [address] [phone] Tyrone Pugh MD Nurse Triage 11/21/2024 Population Health Risk Score [facility] () Department [address] [place] [address], [place] [id number] Provider, Population Health Generic from Last 3 Months Immunizations Name Administration Dates Next Due Influenza Injectable Quadriv alant Preservative Free IIV4 MDCK 05/24/2020 Influenza injectable quadriv alent IIV4 with preservative 06/17/2019,06/23/2016 Influenza injectable quadrivalent preservative f ree 05/23/2022,07/23/2018 Influenza, trivalent, adjuvanted 04/29/2017,04/11 Pneumococcal Polysaccharide PPSV23 05/24/2020, Tdap 06/17/2019,06/16/2013 Zoster, Recombinant 05/23/2022 Social History Tobacco Use Types Packs/Day Years Used Date Smoking Tobacco: Some Days Cigarettes Passive Smoke Exposure: Current Smokeless Tobacco: Never Tobacco Cessation:Ready to Q uit: Not Asked; Counseling Given: Not Answered Alcohol Use Standard Drinks/Week Comments Yes 0 (1 standard drink = 0.6 oz pur e alcohol) Depression Answer Date Recorded Patient Health Questionnaire-9 Score 21 02/11/2024 Patient Health Questionnaire-9 Score 21 02/11/2024 Last PHQ-9: Questionnaire Data Not on file 0 02/11/2024 Housing Stability Answer Date Recorded What is your housing situation today? I have marie conner 12/08/[address] you li ve. Do you have problems with any of the following? None of the above 12/08/2024 Food Insecurity Answer Date Recorded Within the past 12 months, y ou worried that your food would run out before you got money to buy more: Never True 12/08/2024 Within the past 12 months,th e food you bought just didn't last and you didn't have enough money to get more: Never True Transportation Answer Date Recorded In the past 12 months, has l ack of transportation kept you from medical appts, meetings, work or from getting things needed for daily living? No 12/08/2024 Utilities Answer Date Recorded In the past 12 months, has t he electric, gas, oil or water company threatened to shut off services in your home? No 12/08/2024 Depression Answer Date Recorded Patient Health Questionnaire-2 Score 4 12/08/2024 Internet Access Answer Date Recorded Internet Access Q1 Yes 12/08/2024 Internet Access Q2 Not on file 12/08/2024 Comments No Sex and Gender Information Value Date Recorded Sex Assigned at Female 07/10/2022 10:15 AM EDT Legal Sex Female 10:15 AM EDT Gender Identity Female 07/10/2022 10:15 AM EDT Sexual Orientation Straight 07/10/2022 10 :15 AM EDT Last Filed Vital Signs Vital Sign Reading Time Taken Comments Blood Pressure 123/71 11/28/2024 2:21 PM EDT Pulse 59 11/28/2024 2:21 PM EDT Temperature 36.1 ??C (97 ??F) 11/28/2024 2:21 PM EDT Respiratory Rate 18 11/28/2024 2:21 PM EDT Oxygen Saturation 99% 08/22/2024 11:35 AM EST Inhaled Oxygen Concentration - - Weight 59 kg (130 lb) 11/28/2024 2:21 PM EDT Height 163.2 cm (5' 4.25 ) 11/28/2024 2:21 PM ED T Body Mass Index 22.14 11/28/2024 2:21 PM EDT Plan of Treatment Upcoming Encounters Date Type Department Care Team (Late st Contact Info) Description 02/16/2025 1:15 PM EDT Office Visit [facility] MED [facility] PEDS [address] [place] [address] Tyrone Pugh MD [address] [place] [address] Health Maintenance Due Date Last Done Comments CT Colonography 1967 FIT DNA/Cologuard 1967 FIT 1967 FOBT 1967 Sigmoidoscopy 1967 Hepatitis B Vaccines (1 of 3 - 19+ 3-dose series) 1986 Pap Smear 1988 Pneumococcal Vaccine: 50+ Years (2 of 2 - PCV) 05/24/2021 05/24/2020, 04/29/2017 Zoster Vaccines (2 of 2) 07/18/2022 05/23/2022 COVID-19 Vaccine (1 - 2024-25 season) 2024 Influenza Vaccine (#1) 2024 , 05/24/2020, 06/17/2019, Additional history exists Cervical Cancer Screening 08/05/2024 HPV/Cotest 08/05/2024 08/05/2019 Mammogram 08/25/2024 08/25/2022 Depression Monitoring 06/09/2025 12/08/2024, 024 Tobacco Screening 11/28/2025 11/28/2024 Alcohol/Substance Use Screening 12/08/2025 12/08/2024 Depression Screening 12/08/2025 12/08/2024, 02/11/20 24 SDOH Screening 12/08/2025 12/08/2024 DTaP/Tdap/Td Vaccines (3 - Td or Tdap) 06/17/2029 06/17/2019, 06/16/2013 Lipid Panel 07/23/2029 07/23/2024, 07/11, 12/27/2022, Additional history exists Colonoscopy 09/30/2029 09/30/2019 Colorectal Cancer Screening 09/30/2029 RSV Patients and Patients Aged 60 years or older (1 - 1-dose 75+ series) 2042 HIV Screening Completed 12/27/2022 Hepatitis C Screening Completed 12/27/2022 HIB Vaccines Aged Out No longer eligi ble based on patient's age to complete this topic HPV Vaccines Aged Out No longer eligi ble based on patient's age to complete this topic Hepatitis A Vaccines Aged Out No long er eligible based on patient's age to complete this topic IPV Vaccines Aged Out No longer eligi ble based on patient's age to complete this topic Meningococcal Vaccine Aged Out No sathish kraig eligible based on patient's age to complete this topic RSV under 20 months Aged Out No longe r eligible based on patient's age to complete this topic Rotavirus Vaccines Aged Out No longer eligible based on patient's age to complete this topic Procedures Procedure Name Priority Date/Time Associated Diagnosis Comments LIPID PANEL, STANDARD Routine 07/23/2024 9:59 AM EST Mixed hyperlipidemia HEPATITIS C AB W/REFL TO HCV RNA, QN, PCR Routine 12/27/2022 10:13 AM EDT Mixed hyperlipidemia HIV 1 RNA, QN PCR W/RFL MARILYNN (RTI,PI,INTEGRASE) Routine 12/27/2022 10:13 AM EDT Mixed hyperlipidemia HM MAMMOGRAPHY Routine 08/25/2022 HM COLONOSCOPY Routine 09/30/2019 12:48 PM EST ZZZ HISTORICAL HPV MRNA E6/E7 Routine 08/05/2019 10:59 AM EST from Last 3 Months or Most Recently Relevant to Health Maintenance Results * (ABNORMAL) Lipid Panel, Standard (07/23/2024 9:59 AM EST) Triglycerides 358(H) <150 mg/dL [facility] Comment:Slight Lipemia.Julio able Triglyceride: less than 150 mg/dLBorderline High Triglyceride 150-199 mg/dLHigh Triglyceride: 200-499 mg/dLVery High Triglyceride: greater than or equal to 5OO mg/dL Cholesterol 241(H) <200 mg/dL [facility] Comment:Desirable Cholestero l: less than 200 mg/dLBorderline High Cholesterol: 200-239 mg/dLHigh Cholesterol: greater than 239 mg/dL LDL Cholesterol Calculated 129(H) <100 mg/dL [facility] Comment:Desirable LDL: less than 100 mg/dLNear Optimal/Above Optimal LDL: 110- 129 mg/dLBorderline High LDL: 130-159 mg/dLHigh LDL: 160-189 mg/dLVery High LDL: greater than or equal to 190 mg/dL HDL Cholesterol 41 >40 mg/dL [facility] Comment:Desirable HDL: great er than 40 mg/dL Note: This HDL assay may give artificially low results in patients with liver disease. Blood Venous blood specimen / Unknown 07/23/2024 9:59 AM EST 07/23/2024 2:19 PM EST us Tyrone Brito MD LAB BLOOD ORDERABL ES Final Result [facility] [address] [place] [phone] * HIV-1 RNA, Quantitative, Real-Time PCR with Reflex to Genotype (RTI, PI, Integrase) (12/27/2022 10:13 AM EDT) Pathologist [facility] HIV 1 RNA, QN PCR NOT DETECTED copies/mL [facility], HIV 1 RNA, QN PCR NOT DETECTED Log copies/mL [facility], Comment: REFERENCE RANGE: NOT DETECTED copies/mL ?NOT DETECTED ??Log copies/mL This test was performed using Real-Time Polymerase Chain Reaction. Reportable range is 20 to 10,000,000 copies/mL (1.30-7.00 Log copies/mL). 12/27/2022 10:1 3 AM EDT 12/27/2022 10:15 AM EDT [facility] 12/30/2022 10:59 PM EDT FASTING:YES PATIENT REFUSED SOME TESTING; PATIENT ENCOURAGED TO RETURN. FASTING: YES us Tyrone Brito MD LAB BLOOD ORDERABL ES Final Result [facility] [address], [place] [address] [employer], [address] [place] [address] * Hepatitis C Antibody with Reflex to HCV, RNA, Quantitative, Real-Time PCR (12/27/2022 10:13 AM EDT) Pathologist [facility] Hepatitis C Antibody NON-REACT LISSY NON-REACT LISSY [employer] [place] [facility] Index 0.07 <1.00 [employer] [place] [facility] Comment: HCV antibody was non-reactive. There is no laboratory evidence of HCV infection. In most cases, no further action is required. However, if recent HCV exposure is suspected, a test for HCV RNA (test code 66817) is suggested. For additional information please refer to http://education.AllPeers/faq/DPR60s8 (This link is being provided for informational/ educational purposes only.) Blood Venous blood specimen / Unknown 12/27/2022 10:13 AM EDT 12/27/2022 10:15 AM EDT Narrative [facility] - 12/30/2022 10:59 PM EDT FASTING:YES PATIENT REFUSED SOME TESTING; PATIENT ENCOURAGED TO RETURN. FASTING: YES Result [facility] Tyrone Brito MD LAB BLOOD ORDERABL ES Final Result [facility] [address], [place] [address] [employer] [facility] [address] [place] [address] * Hm Mammography (08/25/2022) Anatomical Region Laterality Modality Other Result [facility] Historical Provider MD HEALTH MAINTENANCE Final Result * Hm Colonoscopy (09/30/2019 12:48 PM EST) Result [facility] Historical Provider MD HEALTH MAINTENANCE Final Result * HPV mRNA E6/E7 (08/05/2019 10:59 AM EST) HPV mRNA E6/E7 Not Detected NOT DETECTED [facility] Comment: This test was performed using the APTIMA(R) HPV Assay ([employer] This assay detects E6/E7 viral messenger RNA (mRNA) from 14 high-risk HPV types (16,18,31,33,35,39,45,51, 52,56,58,59,66,68). For additional information please refer to: http://education.AllPeers/faq/SAW577a9 (This link is being provided for informational/ educational purposes only.) The analytical performance characteristics of this assay have been determined by [employer] [place], [place]. The modifications have not been cleared or approved by the FDA. This assay has been validated pursuant to the CLIA regulations and is used for clinical purposes. Test Performed by [facility], [employer] [place], [address] [place], [place] M.D., Ph.D., Director of Laboratories , KIMBERLY [id number] Please note: ??Effective 05/22/2016, HPV testing will be performed using [employer]'s APTIMA test which targets mRNA. Detecting mRNA instead of DNA, as in older methods, offers significant improvements in specificity. 08/05/2019 10:5 9 AM EST us Kayli Page CNM HISTORICAL/NON ORDERABLE LABS Final Result [facility] [address] from Last 3 Months or Most Recently Relevant to Health Maintenance Insurance [place] [address] C3 Care Teams Volumetric Weigher Relationship Specialty Start Date End Date Tyrone Pugh MD [address] [place] [id number] PCP - General Internal Medicine 02/03/20
--- OUTSIDE RECORDS SUMMARY | 2025-01-07 14:36 | XMS_ITS | Encounter Summary ---
Author Organization [employer] Address [address] [facility] [address] [place] [address] Care Team Providers Care Social Welfare Research Worker Name Role Phone Tyrone Pugh MD Primary Care Prov ider Encounter Details Date Type Department Care Team (Late st Contact Info) Description 01/24/2024 Orders Only [facility] MED & PEDS [address] [place] [address] ProviderRyan MD Social History Tobacco Use Types Packs/Day Years Used Date Smoking Tobacco: Some Days Cigarettes Passive Smoke Exposure: Current Smokeless Tobacco: Never Alcohol Use Standard Drinks/Week Comments Yes 0 (1 standard drink = 0.6 oz pur e alcohol) Depression Answer Date Recorded Patient Health Questionnaire-9 Score 9 12/22/2022 Housing Stability Answer Date Recorded What is your housing situation today? I have mariecyril conner 06/30/[address] you li ve. Do you have problems with any of the following? None of the above 06/30/2023 Food Insecurity Answer Date Recorded Within the past 12 months, y ou worried that your food would run out before you got money to buy more: Never True 06/30/2023 Within the past 12 months,th e food you bought just didn't last and you didn't have enough money to get more: Never True Transportation Answer Date Recorded In the past 12 months, has l ack of transportation kept you from medical appts, meetings, work or from getting things needed for daily living? Yes, it has kept me from medical appointments or getting medications. 12/06/2023 Utilities Answer Date Recorded In the past 12 months, has t he electric, gas, oil or water company threatened to shut off services in your home? No 06/30/2023 Depression Answer Date Recorded Patient Health Questionnaire-2 Score 6 12/22/2022 Comments Unknown Sex and Gender Information Value Date Recorded Sex Assigned at Female 07/10/2022 10:15 AM EDT Legal Sex Female 10:15 AM EDT Gender Identity Female 07/10/2022 10:15 AM EDT Sexual Orientation Straight 07/10/2022 10 :15 AM EDT documented as of this encounter Plan of Treatment Upcoming Encounters Date Type Department Care Team (Late st Contact Info) Description 02/16/2025 1:15 PM EDT Office Visit [facility] [address] [place] [address] Tyrone Pugh MD [address] [place] [address] documented as of this encounter Procedures Procedure Name Priority Date/Time Associated Diagnosis Comments CT ABDOMEN PELVIS W CONTRAST Routine 01/06/2024 4:00 PM EDT documented in this encounter Results * CT Abdomen Pelvis w/ Contrast (01/06/2024 4:00 PM EDT) Anatomical Region Laterality Modality Body, Pelvis, Abdomen Computed T omography us Historical Provider MD AVILA CT PROCEDURES Final R esult documented in this encounter Visit Diagnoses Not on filedocumented in this encounter Additional Health Concerns Assessment Noted Time PHQ-9 Depression Total Score: 9 12/23/19 23 10:26 AM EDT documented as of this encounter Care Teams Social Welfare Research Worker Relationship Specialty Start Date End Date Tyrone Pugh MD [address] [place] [address] PCP - General Internal Medicine 02/03/20 documented as of this encounter
--- OUTSIDE RECORDS SUMMARY | 2025-01-07 14:36 | XMS_ITS | Encounter Summary ---
Author Organization [employer] Address [address] [facility] [address] [place] [address] Care Team Providers Care Recreational Specialist Name Role Phone Tyrone Pugh MD Primary Care Prov ider Encounter Details Date Type Department Care Team (Late st Contact Info) Description 12/28/2023 Orders Only [facility] MEDICINE [address] [place] [address] ProviderRyan MD Social History Tobacco Use Types Packs/Day Years Used Date Smoking Tobacco: Some Days Cigarettes Alcohol Use Standard Drinks/Week Comments Yes 0 [...] Description 02/16/2025 1:15 PM EDT Office Visit [facility] MED & PEDS [address] [place] [address] Tyrone Pugh MD [address] [place] [address] documented as of this encounter Procedures Procedure Name Priority Date/Time Associated Diagnosis Comments HM COLONOSCOPY Routine 09/30/2019 12:48 PM EST documented in this encounter Results * Hm Colonoscopy (09/30/2019 12:48 PM EST) Historical Provider HEALTH MAINTENANCE Final Result documented in this encounter Visit Diagnoses Not on filedocumented in this encounter Additional Health Concerns Assessment Noted Time PHQ-9 Depression Total Score: 9 12/23/19 23 10:26 AM EDT documented as of this encounter Care Teams Recreational Specialist Relationship Specialty Start Date End Date Tyrone Pugh MD [address] [place] [address] PCP - General Internal Medicine 02/03/20 documented as of this encounter
--- OUTSIDE RECORDS SUMMARY | 2025-01-07 14:36 | XMS_ITS | Encounter Summary ---
Author Organization [employer] Address [address] [place] [address] [address] [place] [address] Care Team Providers Care Broom Maker Name Role Phone Tyrone Pugh MD Primary Care Prov ider Encounter Details Date Type Department Care Team (Late Contact Info) Description 01/05/2023 Orders Only [facility] MED & PEDS [address] [place] [address] Tyrone Pugh MD [address] [place] [address] Social History Tobacco Use Types Packs/Day Years Used Date Smoking Tobacco: Never Assessed Depression Answer Date Recorded Patient Health Questionnaire-9 Score 9 12/22/2022 Depression Answer Date Recorded Patient Health Questionnaire-2 [...] Encounters Date Type Department Care Team (Late Contact Info) Description 02/16/2025 1:15 PM EDT Office Visit [facility] PEDS [address] [place], [place] [phone] Tyrone Pugh MD [address] [place] [address] documented as of this encounter Visit Diagnoses Not on filedocumented in this encounter Additional Health Concerns Assessment Noted Time PHQ-9 Depression Total Score: 9 12/23/19 23 10:26 AM EDT documented as of this encounter Care Teams Broom Maker Relationship Specialty Start Date End Date Tyrone Pugh MD [address] [place] [id number] PCP - General Internal Medicine 02/03/20 documented as of this encounter
--- OUTSIDE RECORDS SUMMARY | 2025-01-07 14:36 | XMS_ITS | Encounter Summary ---
Author Organization [employer] Address [address] [facility] 7t [place] [address] Care Team Providers Care Utility Sales And Service Manager Name Role Phone Tyrone Pugh MD Primary Care Prov ider Reason for Visit * Reason Onset Date Comments triage 02/01/2023 Encounter Details Date Type Department Care Team ([facility] st Contact Info) Description 02/01/2023 Telephone [facility] MEDICINE [address] [place] [address] Tyrone Pugh MD [address] [place] [phone] triage Social History Tobacco Use Types Packs/Day Years [...] AM EDT documented as of this encounter Miscellaneous Notes * Telephone Encounter - Yasemin Cisneros RN - 02/01/2023 11:38 AM EDT Call returned to patient for triage. No answer LVM to return call to [facility] triage line. Protocol Used: No Contact or Duplicate Contact Call (Adult) Protocol-Based Disposition: No Contact Call Positive Triage Question: * Message left on identified voicemail * All higher-acuity triage questions were negative * Telephone Encounter - Matthieu Noble - 02/01/2023 11:15 AM EDT Symptoms: Sore Throat, Earache Outcome: Schedule an urgent appointment (within 1 hour) or talk to a nurse or provider soon Reason: Severe pain now The caller accepted this outcome speaks malaysian documented in this encounter Plan of Treatment Upcoming Encounters Date Type Department Care Team (Late st Contact Info) Description 02/16/2025 1:15 PM EDT Office Visit [facility] [address] [place] [address] Tyrone Pugh MD [address] [place] [address] documented as of this encounter Visit Diagnoses Not on filedocumented in this encounter Additional Health Concerns Assessment Noted Time PHQ-9 Depression Total Score: 9 12/23/19 23 10:26 AM EDT documented as of this encounter Care Teams Utility Sales And Service Manager Relationship Specialty Start Date End Date Tyrone Pugh MD [address] [place] [address] PCP - General Internal Medicine 02/03/20 documented as of this encounter
--- OUTSIDE RECORDS SUMMARY | 2025-01-07 14:36 | XMS_ITS | Clinical Summary ---
Author Organization [facility] it Address [address] [place] [address] Care Team Providers Care Hospice Nurse Name Role Phone Unavailable Primary Care Provider Unavailabl e Social History Tobacco Use Types Packs/Day Years Used Date Smoking Tobacco: Never Assessed Comments Unknown Sex and Gender Information Value Date Recorded Sex Assigned at Not on file Legal Sex Female 2:00 AM EST Gender Identity Not on file Sexual Orientation Not on file Plan of Treatment Health Maintenance Due Date Last Done Comments DTaP,Tdap,and Td Vaccines (1 - Tdap) 1986 Hepatitis B Vaccines (1 of 3 - 19+ 3-dose series) 1986 Cervical Cancer Screening: P ap Smear 1988 Pneumococcal Vaccine: 50+ Years (1 of 1 - PCV) 2017 Zoster Vaccines (1 of 2) 2017 Colorectal Cancer Screening: Colonoscopy 08/13/2022 Depression Screening 08/13/2022 HIV Screening 08/13/2022 Hepatitis C Screening 08/13/2022 Social Influencers of Health Screening 08/13/2022 COVID-19 Vaccine ( - 2023-2 5 season) 2024 Breast Cancer Screening 08/24/2024 08/24/20, 02/12/2019 Influenza Vaccine (Season Ended) 2025 HIB Vaccines Aged Out No longer eligi [...] on patient's age to complete this topic MMR Vaccines Aged Out No longer eligi ble based on patient's age to complete this topic Meningococcal ACWY Vaccine Aged Out N o longer eligible based on patient's age to complete this topic Meningococcal B Vaccine Aged Out No l onger eligible based on patient's age to complete this topic Pneumococcal Vaccine: Pediatrics (0 to 5 Years) and At-Risk Patients (6 to 64 Years) Aged Out No longer eligible b ased on patient's age to complete this topic RSV Immunization Patients Under 20 months Aged Out No longer eligible b ased on patient's age to complete this topic Varicella Vaccines Aged Out No longer eligible based on patient's age to complete this topic Procedures Procedure Name Priority Date/Time Associated Diagnosis Comments [facility] SCREENING DIGITAL Routine 08/24/2022 4:11 PM EST Encounter for screening mammogram for malignant neoplasm of breast from Last 3 Months or Most Recently Relevant to Health Maintenance Results * [facility] SCREENING DIGITAL (08/24/2022 4:11 PM EST) Anatomical Region Laterality Modality Mammography 08/24/2022 12:4 6 PM EST Narrative 08/24/2022 4:11 PM EST [facility] Diagnostic Imaging Department [address] [place] [address] Patient: ??JAMIA JOSEPH ?/Age/Sex: 1965 - 56 - F Unit#: ??[id number] ? Location/Status: ??SPDIMAM/REG CLI ? Mnemonic/Ordering Site: ??[facility]SC/SPMAM Ordering Physician: ??TYRONE WEIR MD [facility] Screening Digital - 08/24/22 - 1556 EXAM: [facility] Screening Digital EXAM DATE AND TIME: 08/24/2022 3:57 PM HISTORY: ??Screening. Maternal cousin had breast carcinoma at age 43. COMPARISON: ??02/12/19, 10/22/15, 09/17/13 TECHNIQUE: CC and MLO views of both breasts were obtained using full field digital mammography. Bilateral digital breast tomosynthesis was performed in the MLO projection. Computer aided detection with [employer] 7.2-H and [employer] 3D 3.1 was employed. TISSUE DENSITY: b. There are scattered areas of fibroglandular density. FINDINGS: No suspicious masses, grouped microcalcifications, or areas of architectural distortion are seen. The skin and vascularity are unremarkable. IMPRESSION: Stable mammographic appearance of the breasts. ??No evidence of malignancy is seen. A negative mammogram in the presence of a clinically suspicious palpable abnormality does not preclude the possibility of malignancy or alter the indications for biopsy. BI-RADS: ??Category 1: Negative RECOMMENDATION(S): 1: Routine screening mammogram BILATERAL in 1 year. 31493, 58792 3341F, 7025F Dictating Physician: ??SHANTI TOWNSEND MD Electronically Signed by: ??SHANTI TOWNSEND MD Dic Date/Time: ??08/24/221610 Sign date/Time: ??08/24/221610 Procedure Note Shanti Townsend MD - 10/12/2023 [facility] Diagnostic Imaging Department [address] [place], [place] [address] Patient: JAMIA JOSEPH /Age/Sex: 1965 - 56 - F Unit#: [id number] Location/Status: [facility]/REG CLI Mnemonic/Ordering Site: [facility] Ordering Physician: TYRONE WEIR MD [facility] Screening Digital - 08/24/22 - 1556 EXAM: [facility] Screening Digital EXAM DATE AND TIME: 08/24/2022 3:57 PM HISTORY: Screening. Maternal cousin had breast carcinoma at age 43. COMPARISON: 02/12/19, 10/22/15, 09/17/13 TECHNIQUE: CC and MLO views of both breasts were obtained using fullfield digital mammography. Bilateral digital breast tomosynthesis was performedin the MLO projection. Computer aided detection with [employer] 7.[employer]-H and[employer] 3D 3.1 was employed. TISSUE DENSITY: b. There are scattered areas of fibroglandular density. FINDINGS: No suspicious masses, grouped microcalcifications, or areas ofarchitectural distortion are seen. The skin and vascularity are unremarkable. IMPRESSION: Stable mammographic appearance of the breasts. No evidence of malignancyis seen. A negative mammogram in the presence of a clinically suspicious palpable abnormality does not preclude the possibility of malignancy or alter the indications for biopsy. BI-RADS: Category 1: Negative RECOMMENDATION(S): 1: Routine screening mammogram BILATERAL in 1 year. 38882, 15703 3341F, 7025F Dictating Physician: SHANTI TOWNSEND MD Electronically Signed by: SHANTI TOWNSEND MD Dic Date/Time: 08/24/22 1611 Sign date/Time: 08/24/22 1611 us Tyrone Brito IMG BI PROCEDURES Fin al Result from Last 3 Months or Most Recently Relevant to Health Maintenance
== END 2025-01-07 14:30 | disposition home or self-care (01) ==
LOC: HO.HOS 13:18
PROVIDERS: PCP Internal Medicine; Visit Provider Orthopaedic Surgery
DX: R20.0 Anesthesia of skin (principal); R20.2 Paresthesia of skin; M67.431 Ganglion, right wrist
CPT/HCPCS: 99213

== ENCOUNTER → 2025-01-07 13:17 | Outpatient (BNVA) | payer MEDICAID, SELFPAY | PROVIDERS: PCP Internal Medicine; Visit Provider Orthopaedic Surgery | DX: M67.431 Ganglion, right wrist (principal); R20.0 Anesthesia of skin; R20.2 Paresthesia of skin | CPT/HCPCS: 99212 ==

== ENCOUNTER 2025-03-17 09:24 | Outpatient (REF) | payer MEDICAID, SELFPAY ==
--- NOTE | 2025-03-17 09:26 | EMG_ITS ---
Bilateral median and ulnar motor and sensory studies were performed. Bilateral radial sensory studies were performed and bilateral median and lateral antecubital brachial sensory studies were performed and paraspinal muscles were tested with a needle. IMPRESSION: Moderate left and [id number] right median neuropathy across carpal tunnel. Please see the attached document for detail of data M MD GARY Salinas/LIBORIO / [id number] MTDD
--- OUTSIDE RECORDS SUMMARY | 2025-03-17 09:51 | XMS_ITS | Patient Health Record ---
Author Organization [facility] Address [address] [place] [address] Care Team Providers Care Filtration Plant Mechanic Name Role Phone Marco Smith Jr [phone] Reason For Referral No Information Plan Of Treatment No Information
--- OUTSIDE RECORDS SUMMARY | 2025-03-17 09:51 | XMS_ITS | Clinical Summary ---
Author Organization [facility] it Address [address] [place] [address] Care Team Providers Care Campaign Marketing Specialist Name Role Phone Unavailable Primary Care Provider [...] Cancer Screening 08/24/2024 08/24/20, 02/12/2019 Influenza Vaccine (#1) 2025 HIB Vaccines Aged Out No longer [...] Procedure Name Priority Date/Time Associated Diagnosis Comments [facility] SCREENING DIGITAL Routine 08/24/2022 4:11 PM EST Encounter for screening mammogram for malignant neoplasm of breast from Last 3 Months or Most Recently Relevant to Health Maintenance Results * [facility] SCREENING DIGITAL (08/24/2022 4:11 PM EST) Anatomical Region Laterality Modality Mammography 08/24/2022 12:4 6 PM EST Narrative 08/24/2022 4:11 PM EST [facility] Diagnostic Imaging Department [address] [place] [address] Patient: JAMIA JOSEPH D.O.B./Age/Sex: 1965 - 56 - F Unit#: [id number] Location/Status: [facility]/REG CLI Mnemonic/Ordering Site: [facility] Ordering Physician: TYRONE WEIR MD [facility] Screening Digital - 08/24/22 - 1556 EXAM: [facility] Screening Digital EXAM DATE AND TIME: 08/24/2022 3:57 PM HISTORY: Screening. Maternal cousin had breast carcinoma at age 43. COMPARISON: 02/12/19, 10/22/15, 09/17/13 TECHNIQUE: CC and MLO views of both breasts were obtained using full field digital mammography. Bilateral digital breast tomosynthesis was performed in the MLO projection. Computer aided detection with [employer] 7.2-H and [employer] 3D 3.1 was employed. TISSUE DENSITY: b. There are scattered areas of fibroglandular density. FINDINGS: No suspicious masses, grouped microcalcifications, or areas of architectural distortion are seen. The skin and vascularity are unremarkable. IMPRESSION: Stable mammographic appearance of the breasts. No evidence of malignancy is seen. A negative mammogram in the presence of a clinically suspicious palpable abnormality does not preclude the possibility of malignancy or alter the indications for biopsy. BI-RADS: Category 1: Negative RECOMMENDATION(S): 1: Routine screening mammogram BILATERAL in 1 year. 39223, 79218 3341F, 7025F Dictating Physician: SHANTI TOWNSEND MD Electronically Signed by: SHANTI TOWNSEND MD Dic Date/Time: 08/24/221610 Sign date/Time: 08/24/221610 Procedure Note Shanti Townsend MD - 10/12/2023 [facility] Diagnostic Imaging Department [address] [place] [address] Patient: JAMIA JOSEPH./Age/Sex: 1965 - 56 - F Unit#: [id number] Location/Status: [facility]/REG CLI Mnemonic/Ordering Site: [facility] Ordering Physician: TYRONE WEIR MD [facility] Screening Digital - 08/24/22 - 1556 EXAM: [facility] Screening Digital EXAM DATE AND TIME: 08/24/2022 3:57 PM HISTORY: Screening. Maternal cousin had breast carcinoma at age 43. COMPARISON: 02/12/19, 10/22/15, 09/17/13 TECHNIQUE: CC and MLO views of both breasts were obtained using fullfield digital mammography. Bilateral digital breast tomosynthesis was performedin the MLO projection. Computer aided detection with [employer] 7.2-H and[employer] 3D 3.1 was employed. TISSUE DENSITY: b. [...] Routine screening mammogram BILATERAL in 1 year. 00704, 12168 3341F, 7025F Dictating Physician: SHANTI TOWNSEND MD Electronically Signed by: SHANTI TOWNSEND MD Dic Date/Time: 08/24/22 161 Sign date/Time: 08/24/22 161 Tyrone AVILA BI PROCEDURES Fin al Result from Last 3 Months or Most Recently Relevant to Health Maintenance
--- OUTSIDE RECORDS SUMMARY | 2025-03-17 09:51 | XMS_ITS | Encounter Summary ---
Author Organization [employer] Address [address] [facility] 7t [place] [address] Care Team Providers Care Recovery Collector Name Role Phone Tyrone Pugh MD Primary Care Prov ider Reason for Visit * Reason Onset Date Comments Nurse Triage 01/12/2025 Encounter Details Date Type Department Care Team ([facility] st Contact Info) Description 01/12/2025 Telephone [facility] MEDICINE [address] [place] [address] Tyrone Pugh MD [address] [place] [address] Nurse Triage Social History Tobacco Use Types Packs/Day Years [...] encounter Miscellaneous Notes * Telephone Encounter - Melissa Nichols RN - 01/12/2025 10:44 AM EDT Triage call Pt reports bilateral hands get very itchy especially at night. Pt has been using voltaren gel as directed but, it is not effective for this itchiness. Pt has seen orthopedic surgeon 01/07/25 and is waiting to see NCS to assess peripheral nerve condition. Pt is advised to soak hands in iced, cold water in the evening before bed to see if that is effective for reducing the itchiness and agrees. Pt agrees with disposition . Once Pt is seen by NCS and orthopedic follow up, Pt will call for apt with provider. Pt is offered [place] hours given , in case the iced water doesn't help. Insuranceis verified as active. Protocol Used: Itching - Localized (Adult) Protocol-Based Disposition: Home Care Positive Triage Question: * Mild localized itching * All higher-acuity triage questions were negative Care Advice Discussed: * Reassurance and Education - Itching * Ice for Itching That Gets Worse * Reasons To Call Back - Looks infected (such as spreading redness, red streak, pus) - Itching becomes severe - Itching lasts over 7 days - You become worse * Telephone Encounter - Melissa Nichols RN - 01/12/2025 9:44 AM EDT Triage call to [phone] rec'd message that Person wasn't able to take calls at this time , unable to leave message. Call to [phone] Pt didn't answer. Left voice message to call [facility] triage line at Pt convenience [phone] * Telephone Encounter - Nubia Pacheco - 01/12/2025 9:20 AM EDT Symptoms: Itching - No Rash, Hand or Wrist Pain - Not From Injury, Numbness, Back lower pain Outcome: Schedule an urgent appointment (within 1 hour) or talk to a nurse or provider soon Reason: Getting worse The caller accepted this outcome. documented in this encounter Plan of Treatment Not on file documented as of this encounter Visit Diagnoses Not on filedocumented in this encounter Additional Health Concerns Assessment Noted Time PHQ-9 Depression Total Score: 21 024 1:37 PM EDT documented as of this encounter Care Teams Recovery Collector Relationship Specialty Start Date End Date Tyrone Pugh MD [address] [place] [address] PCP - General Internal Medicine 02/03/20 documented as of this encounter
== END 2025-03-17 09:25 | disposition home or self-care (01) ==
LOC: HO.NEURO 09:24
PROVIDERS: PCP Internal Medicine; Visit Provider Orthopaedic Surgery
DX: G56.13 Other lesions of median nerve, bilateral upper limbs (principal); R20.0 Anesthesia of skin; R20.2 Paresthesia of skin
CPT/HCPCS: 95886; 95913

== ENCOUNTER → 2025-03-17 09:26 | Outpatient (BNV) | payer MEDICAID, SELFPAY | PROVIDERS: PCP Internal Medicine; Visit Provider Psychiatry & Neurology Neurology | DX: G62.89 Other specified polyneuropathies (principal) | CPT/HCPCS: 95886; 95913 ==

== ENCOUNTER 2025-03-26 11:23 | Outpatient (REF) | payer MEDICAID, SELFPAY ==
--- OUTSIDE RECORDS SUMMARY | 2025-03-26 12:13 | XMS_ITS | Encounter Summary ---
Author Organization [employer] Address [address] [facility] [address] 7t [place] [address] Care Team Providers Care Director Craft Center Name Role Phone Tyrone Pugh MD Primary Care Prov ider Reason for Visit * Reason Onset Date Comments Nurse Triage 01/12/2025 Encounter Details Date Type Department Care Team ([facility] st Contact Info) Description 01/12/2025 Telephone [facility] MEDICINE [address] [place] [address] Tyrone Pugh MD [address] [place] [address] Nurse Triage Social History Tobacco Use Types [...] 01/12/2025 9:44 AM EDT Triage call to [phone] rec'd message that Person wasn't able to take calls at this time , unable to leave message. Call to [phone] Pt didn't answer. Left voice message to call [facility] triage line at Pt convenience [phone] * Telephone Encounter - Nubia Pacheco - [...] documented as of this encounter Care Teams Director Craft Center Relationship Specialty Start Date End Date Tyrone Pugh MD [address] [place] [id number] PCP - General Internal Medicine 02/03/20 documented as of this encounter
--- OUTSIDE RECORDS SUMMARY | 2025-03-26 12:13 | XMS_ITS | Clinical Summary ---
Author Organization [facility] it Address [address] [place] [address] Care Team Providers Care Grove Worker Name Role Phone Unavailable Primary Care Provider [...] 2) 2017 Colorectal Cancer Screening: Colonoscopy 08/13/2022 HIV Screening 08/13/2022 Hepatitis C Screening 08/13/2022 Social Influencers of Health Screening 08/13/2022 COVID-19 Vaccine ( - 2023-2 5 season) 2024 Breast Cancer Screening 08/24/2024 08/24/20, 02/12/2019 Depression Screening 09/10/2024 Influenza Vaccine (#1) 2025 HIB Vaccines Aged [...] Procedure Name Priority Date/Time Associated Diagnosis Comments [facility] SCREENING DIGITAL Routine 08/24/2022 4:11 PM EST Encounter for screening mammogram for malignant neoplasm of breast from Last 3 Months or Most Recently Relevant to Health Maintenance Results * [facility] SCREENING DIGITAL (08/24/2022 4:11 PM EST) Anatomical Region Laterality Modality Mammography 08/24/2022 12:4 6 PM EST Narrative 08/24/2022 4:11 PM EST [facility] Diagnostic Imaging Department [address] [place] [address] Patient: JAMIA JOSEPH D.O.B./Age/Sex: 1965 - 56 - F Unit#: [id number] Location/Status: [facility]/REG CLI Mnemonic/Ordering Site: [facility] Ordering Physician: TYRONE WEIR MD [facility] Screening Digital - 08/24/22 - 1556 EXAM: [facility] Screening Digital EXAM DATE AND TIME: 08/24/2022 3:57 PM HISTORY: Screening. Maternal cousin had breast carcinoma at age 43. COMPARISON: 02/12/19, 10/22/15, 09/17/13 TECHNIQUE: CC and MLO views of both breasts were obtained using full field digital mammography. Bilateral digital breast tomosynthesis was performed in the MLO projection. Computer aided detection with [employer] 7.2-H and [employer] 3D 3.1 was employed. TISSUE DENSITY: b. [...] Routine screening mammogram BILATERAL in 1 year. 20167, 05693 3341F, 7025F Dictating Physician: SHANTI TOWNSEND MD Electronically Signed by: SHANTI TOWNSEND MD Dic Date/Time: 08/24/221610 Sign date/Time: 08/24/221610 Procedure Note Shanti Townsend MD - 10/12/2023 [facility] Diagnostic Imaging Department [address] [place] [address] Patient: JAMIA JOSEPH./Age/Sex: 1965 - 56 - F Unit#: [id number] Location/Status: [facility]/REG CLI Mnemonic/Ordering Site: [facility] Ordering Physician: TYRONE WEIR MD [facility] Screening Digital - 08/24/22 - 1556 EXAM: [facility] Screening Digital EXAM DATE AND TIME: 08/24/2022 3:57 PM HISTORY: Screening. Maternal cousin had breast carcinoma at age 43. COMPARISON: 02/12/19, 10/22/15, 09/17/13 TECHNIQUE: CC and MLO views of both breasts were obtained using fullfield digital mammography. Bilateral digital breast tomosynthesis was performedin the MLO projection. Computer aided detection with [employer] 7.2-H and[employer] 3D 3.1 was employed. TISSUE DENSITY: b. [...] Routine screening mammogram BILATERAL in 1 year. 83403, 66395 3341F, 7025F Dictating Physician: SHANTI TOWNSEND MD Electronically Signed by: SHANTI TOWNSEND MD Dic Date/Time: 08/24/22 161 Sign date/Time: 08/24/22 161 Tyrone AVILA BI PROCEDURES Fin al Result from Last 3 Months or Most Recently Relevant to Health Maintenance
--- OUTSIDE RECORDS SUMMARY | 2025-03-26 12:13 | XMS_ITS | Patient Health Record ---
Author Organization [facility] Address [address] [place] [address] Care Team Providers Care Touch Up Worker Name Role Phone Marco Smith Jr [phone] Reason For Referral No Information Plan Of Treatment No Information
[2025-03-26 12:37] LABS: Anion Gap 12 (12-20); Blood Urea Nitrogen 8 mg/dL (9-16); Calcium 9.9 mg/dL (8.4-10.2); Carbon Dioxide 28 mmol/L (22-29); Chloride 101 mmol/L (96-108); Estimated Glomerular Filt Rate > 60; Potassium 4.2 mmol/L (3.3-5.1); Sodium 137 mmol/L (135-145)
[2025-03-26 13:16] LABS: Folate 12.2 ng/mL (> or = 4.0); Vitamin B12 573 pg/mL (200-900)
[2025-03-26 14:25] LABS: D Dimer High Sensitivity < 150 NG/ML
== END 2025-03-26 11:24 | disposition home or self-care (01) ==
LOC: HO.CHCLDS 11:23
PROVIDERS: Visit Provider Internal Medicine
DX: M79.672 Pain in left foot (principal); R20.2 Paresthesia of skin
CPT/HCPCS: 36415; 80048; 82607; 82746; 85379

== ENCOUNTER 2025-05-19 14:30 | Outpatient (AMB) | payer MEDICAID, SELFPAY ==
--- NOTE | 2025-05-19 14:33 | A.OFFVIS_ITS ---
Vital Signs 05/19/25 14:34 Height 5 ft 4 in Weight 132 lb BMI 22.7 Intake Visit Reasons: OV- EMG review/ done 03/17/25 Intake Note: Jamia 59 yr old - hand dominant female presents today for her EMG review. IMPRESSION: Moderate left and cqel-uq-knxzedlu right median neuropathy across carpal tunnel. Allergies No Known Allergies Allergy (Verified 01/07/25 14:00) HPI HPI OV- EMG review/ done 03/17/25: Details: Jamia is a 59 year old right hand dominant woman who returns for a NCS review of her bilateral hand numbness She also complains of numbness & tingling in both of her hands. Symptoms intermittent, but daily, worse at night. She says she now always has a little bit of tingling in her fingers, L>R. She also has a right volar wrist ganglion. She has a Hx of a left volar wrist ganglion excision, DOS: 03/05/23. [facility] Medical History (Updated 05/19/25 @ 14:54 by Umair Chase) GERD (gastroesophageal reflux disease) Thyroid disease Depressed Surgical History History of esophagogastroduodenoscopy (EGD) Hx of colonoscopy Social History Patient Tobacco Use Status: Former Tobacco user Tobacco use type: Cigarette Current occupational status: unemployed Current occupation: rt hand Review of Systems Const All systems reviewed & are unremarkable except as noted in HPI and below Physical Exam Vital Signs: BMI result Body Mass Index 22.7 Const General: no acute distress and alert Orientation/consciousness: patient oriented x3 Neuro General: patient oriented x3 Extrem Other: Evaluation of Bilateral Upper Extremity: The patient is alert, oriented, and in no acute distress Neuro: Decreased subjective sensation in the median nerve distribution bilaterally. No thenar or intrinsic wasting Good APB muscle belly firing and good finger cross Vascular: Cap refill brisk ROM: She can make a fist and extend all her digits Generalized pain in multiple DIP joints, her right middle, ring, and small fingers, and her left small finger There is a mass on the volar aspect of her right wrist measuring ~1cm in diameter. Most consistent with a ganglion Nerve Conduction Study: IMPRESSION: Moderate left and tcvp-fu-dkispacf right median neuropathy across carpal tunnel. MD GARY Ng/LIBOR[facility] Psych Appearance: grossly normal Affect: normal affect Attitude: cooperative Assessment & Plan Assessment & Plan (1) Carpal tunnel syndrome of left wrist: Code(s): G56.02 - Carpal tunnel syndrome, left upper limb Category: Medical (2) Carpal tunnel syndrome of right wrist: Code(s): G56.01 - Carpal tunnel syndrome, right upper limb Category: Medical (3) Ganglion cyst of volar aspect of right wrist: Code(s): M67.431 - Ganglion, right wrist Category: Medical Plan Assessment & Plan: 1. Left carpal tunnel syndrome, moderate Symptoms intermittent, but daily, worse at night This is her chief complaint today I educated her about this condition I discussed operative and non-operative treatment options The patient would like to proceed with surgery The risks and benefits of operative treatment were discussed with the patient and the patient wishes to proceed with surgery. These risks include, but are not limited to risk of damage to blood vessels, nerves, tendons, infection, recurrence, incomplete relief of preoperative symptoms, persistent pain, possible need for further surgery and the risks associated with regional blocks and anesthesia. The plan is to take the patient to the operating room sometime in the next few weeks for the following procedures: 1. Left carpal tunnel release, under local All of the preoperative paperwork including the consent was reviewed today. All the patient's questions were answered. The patient understands that they will be contacted by our rehabilitation aide/scheduler soon to schedule this procedure She denies Diabetes, blood thinners, asthma, heart, lung, kidney issues 2. Right carpal tunnel syndrome, mild-moderate Symptoms intermittent, but daily, worse at night 2. Right volar wrist ganglion Measuring ~1cm in diameter We briefly discussed treatment options today in clinic She will follow up to discuss treatment when her LUE has recovered from surgery 4. Bilateral hand pain In multiple DIP joints Likely secondary to osteoarthritis, radiographs needed to confirm 5. Left volar wrist ganglion, S/P excision DOS: 03/05/23 resolved Scribed for Hailee Segovia MD by Umair Chase, biomedical analytical scientist, on 05/19/25 at 2:50 PM, EST. Coding Level of Care Code Est Pt Level 4 (47745) Diagnoses Carpal tunnel syndrome of left wrist G56.02 Carpal tunnel syndrome of right wrist G56.01 Ganglion cyst of volar aspect of right wrist M67.039
[2025-05-19 14:34] VITALS: BMI 22.7
--- OUTSIDE RECORDS SUMMARY | 2025-05-19 17:04 | XMS_ITS | Clinical Summary ---
Author Organization [employer] Address [address] [facility] [address] [place] [address] Care Team Providers Care Planer Operator Name Role Phone Tyrone Pugh MD Primary [...] 12:27 PM EST): Patient was seen at [facility] on 09/13 due to colitis. Was [...] Encounters Date Type Department Care Team Description 05/06/2025 Orders Only [email or web address] Information Management [address] [place] [address] ProviderRyan MD 05/04/2025 Telephone [facility] [address] [place] [address] Tyrone Pugh MD Results 03/26/2025 10:30 AM EDT Office Visit [facility] [address] [place] [address] Chasity Olivares MD Left foot pain (Primary Dx); Paresthesia 03/26/2025 Results Follow-Up [facility] [address] [place] [address] Chasity Olivares MD Vitamin B12/Folate, Serum Panel, Basic Metabolic Panel, D Dimer High Sensitivity, XR Foot 3+ Views Left 03/26/2025 Travel 03/23/2025 Telephone [facility] [address] [place] [address] Tyrone Pugh MD Nurse Triage 02/16/2025 Telephone [facility] [address] [place] [address] Tyrone Pugh MD No Show from Last 3 Months Immunizations Immunization Administration Dates Next Due Influenza Injectable Quadriv [...] Sign Reading Time Taken Comments Blood Pressure 122/73 03/26/2025 10:31 AM EDT Pulse 57 03/26/2025 10:31 AM EDT Temperature 36.8 C (98.2 F) 03/26/2025 10:31 AM EDT Respiratory Rate 20 03/26/2025 10:31 AM EDT Oxygen Saturation 98% 03/26/2025 10:31 AM EDT Inhaled Oxygen Concentration - - Weight 61.7 kg (136 lb) 03/26/2025 10:31 AM EDT Height 163.2 cm (5' 4.25 ) 03/26/2025 10:31 AM E DT Body Mass Index 23.16 03/26/2025 10:31 AM EDT Plan of Treatment Health Maintenance Due Date Last Done Comments CT Colonography 1967 FIT DNA/Cologuard 1967 FIT 1965 FOBT 1965 Sigmoidoscopy 1965 Disability Screening 1967 Hepatitis B Vaccines (1 of 3 - 19+ 3-dose series) 1986 Pap Smear 1988 Pneumococcal Vaccine: 50+ Years (2 of 2 - PCV) 05/24/2021 05/24/2020, 04/29/2017 Zoster Vaccines (2 of 2) 07/18/2022 05/23/2022 Cervical Cancer Screening 08/05/2024 HPV/Cotest 08/05/2024 08/05/2019 Mammogram 08/25/2024 08/25/2022 COVID-19 Vaccine (1 - season) 2025 Influenza Vaccine (#1) 2025 2, 05/24/2020, 06/17/2019, Additional history exists Depression Monitoring 06/09/2025 12/08/2024, 024 Alcohol/Substance Use Screening 12/08/2025 12/08/2024 SDOH Screening 12/08/2025 12/08/2024 Tobacco Screening 03/26/2026 03/26/2025 DTaP/Tdap/Td Vaccines (3 - Td or Tdap) [...] Procedure Name Priority Date/Time Associated Diagnosis Comments ELECTRONEURONOGRAPHY Routine 05/05/2025 4:19 PM EDT XR FOOT 3+ VIEWS LEFT Routine 03/30/2025 Left foot pain Paresthesia D DIMER HIGH SENSITIVITY Routine 025 11:26 AM EDT Left foot pain BASIC METABOLIC PANEL Routine 03/26/2025 11:26 AM EDT Left foot pain Paresthesia VITAMIN B12/FOLATE, SERUM PANEL Routine 03/26/2025 11:26 AM EDT Left foot pain Paresthesia LIPID PANEL, STANDARD Routine 07/23/2024 9:59 AM [...] Recently Relevant to Health Maintenance Results * Electroneuronography (05/05/2025 4:19 PM EDT) Historical Provider NEUROLOGY ORDERABLES Vesta l Result * XR Foot 3+ Views Left (03/30/2025) Anatomical Region Laterality Modality Lower Extremities, Foot Left Radiogra phic Imaging Chasity Olivares MD IMG XR PROCEDURES Final Res ult * D Dimer High Sensitivity (03/26/2025 11:26 AM EDT) D Dimer High Sensitivity <150 NG/ML [facility] Comment:D-DIMER HS REFERENCE RANGENote: Our assay reports D-Dimer Units (D- DU).The cut-off value for venous thromboembolic (VTE) disease is230 ng/mL. This value has a very high negative predictivevalue when the patient has a low to moderate clinicalprobability of VTE.The upper limit of normal is 243 ng/mL. Blood 03/26/2025 11:2 6 AM EDT 03/26/2025 12:22 PM EDT us Chasity Olivares MD LAB BLOOD ORDERABLES Final Result Performing Organization Address City/[facility]/ZIP Co de Phone Number [facility] [address] [place] [phone] * Vitamin B12/Folate, Serum Panel (03/26/2025 11:26 AM EDT) Pathologist [facility] Vitamin B12 573 200 - 900 pg/mL [facility] Comment:NORMAL 200-900 PG/ML INDETERMINATE 160-199 PG/ML DEFICIENT < 160 PG/ML Folate 12.2 > or = 4.0 ng/mL [facility] Comment:Reference Values:> o r = 4.0 ng/mL< 4.0 ng/mL suggests folate deficiency Methotrexate, aminopterin and folinic acid(leucovorin) are chemotherapeutic agents whose molecularstructures are similar to folate; therefore, the Architectfolate assay cannot be used for patients using these drugs. Blood Venous blood specimen / Unknown 03/26/2025 11:26 AM EDT 03/26/2025 12:22 PM EDT us Chasity Olivares MD LAB BLOOD ORDERABLES Final Result Performing Organization Address [facility] Co de Phone Number [facility] [address] [place] [address] [phone] * (ABNORMAL) Basic Metabolic Panel (03/26/2025 11:26 AM EDT) [facility] Sodium 137 135 - 145 mmol/L [facility] Potassium 4.2 3.3 - 5.1 mmol/L [facility] Chloride 101 96 - 108 mmol/L [facility] Carbon Dioxide 28 22 - 29 mmol/L [facility] Anion Gap 12 12 - 20 [facility] Urea Nitrogen (BUN) 8(L) 9 - 16 mg/dL [facility] Creatinine, Serum 0.88 0.5 - 1.4 mg/dL [facility] Estimated Glomerular Filt Rate >60 [facility] Comment:Chronic Kidney Disea se: Estimated GFR < 60 mL/min/1.25o5Qerzfe Kidney Disease: Estimated GFR < 15 mL/min/1.73m2 Glucose 90 60 - 115 mg/dL [facility] Calcium 9.9 8.4 - 10.2 mg/dL [facility] Blood Venous blood specimen / Unknown 03/26/2025 11:26 AM EDT 03/26/2025 12:22 PM EDT us Chasity Olivares MD LAB BLOOD ORDERABLES Final Result Performing Organization Address City/State/[facility] Co de Phone Number [facility] [address] [place] [address] [phone] * (ABNORMAL) Lipid Panel, Standard (07/23/2024 9:59 AM EST) Triglycerides 358(H) <150 mg/dL [facility] Comment:Slight Lipemia.Julio able Triglyceride: less than 150 mg/dLBorderline High Triglyceride 150-199 mg/dLHigh Triglyceride: 200-499 mg/dLVery High Triglyceride: greater than or equal to 5OO mg/dL Cholesterol 241(H) <200 mg/dL [facility] Comment:Desirable Cholestero l: less than 200 mg/dLBorderline High Cholesterol: 200-239 mg/dLHigh Cholesterol: greater than 239 mg/dL LDL Cholesterol Calculated 129(H) <100 mg/dL [facility] Comment:Desirable LDL: less than 100 mg/dLNear Optimal/Above Optimal LDL: 110- 129 mg/dLBorderline High LDL: 130-159 mg/dLHigh LDL: 160-189 mg/dLVery High LDL: greater than or equal to 190 mg/dL HDL Cholesterol 41 >40 mg/dL [facility] Comment:Desirable HDL: great er than 40 mg/dL Note: This HDL assay may give artificially low results in patients with liver disease. Blood Venous blood specimen / Unknown 07/23/2024 9:59 AM EST 07/23/2024 2:19 PM EST us Tyrone Brito MD LAB BLOOD ORDERABL ES Final Result [facility] [address] [place] [address] [phone] * HIV-1 RNA, Quantitative, Real-Time PCR with Reflex to Genotype (RTI, PI, Integrase) (12/27/2022 10:13 AM EDT) HIV 1 RNA, QN PCR NOT DETECTED copies/mL [facility], HIV 1 RNA, QN PCR NOT DETECTED Log copies/mL [facility], Comment: REFERENCE RANGE: NOT DETECTED copies/mL NOT DETECTED Log copies/mL This test was performed using Real-Time Polymerase Chain Reaction. Reportable range is 20 to 10,000,000 copies/mL (1.30-7.00 Log copies/mL). 12/27/2022 10:1 3 AM EDT 12/27/2022 10:15 AM EDT Narrative [facility] - 12/30/2022 10:59 PM EDT FASTING:YES PATIENT REFUSED SOME TESTING; PATIENT ENCOURAGED TO RETURN. FASTING: YES Tyrone Brito MD LAB BLOOD ORDERABL ES Final Result Performing Organization Address [facility] Co de Phone Number [facility] [address], [place] [address] [employer], [address] [place] [address] * Hepatitis C Antibody with Reflex to HCV, RNA, Quantitative, Real-Time PCR (12/27/2022 10:13 AM EDT) Hepatitis C Antibody NON-REACT LISSY NON-REACT LISSY [employer] [place] [employer] Index 0.07 <1.00 [employer] [place] [employer] Comment: HCV antibody was non-reactive. There is no laboratory evidence of HCV infection. In most cases, no further action is required. However, if recent HCV exposure is suspected, a test for HCV RNA (test code 42493) is suggested. For additional information please refer to http://education.Solafeet/faq/MVE97a1 (This link is being provided for informational/ educational purposes only.) Blood Venous blood specimen / Unknown 12/27/2022 10:13 AM EDT 12/27/2022 10:15 AM EDT Narrative [facility] - 12/30/2022 10:59 PM EDT FASTING:YES PATIENT REFUSED SOME TESTING; PATIENT ENCOURAGED TO RETURN. FASTING: YES Tyrone Brito MD LAB BLOOD ORDERABL ES Final Result [facility] [address], [place] [address] [employer] [facility] [address] [place] [address] * Hm Mammography (08/25/2022) Anatomical Region Laterality Modality Other Result [facility] Historical Provider HEALTH MAINTENANCE Final Result * Hm Colonoscopy (09/30/2019 12:48 PM EST) Historical Provider HEALTH MAINTENANCE Final Result * HPV mRNA E6/E7 (08/05/2019 10:59 AM EST) HPV mRNA E6/E7 Not Detected NOT DETECTED [facility] Comment: This test was performed using the APTIMA(R) HPV Assay ([employer] This assay detects E6/E7 viral messenger RNA (mRNA) from 14 high-risk HPV types (16,18,31,33,35,39,45,51, 52,56,58,59,66,68). For additional information please refer to: http://education.FireEye.Eclector/faq/QWX371m3 (This link is being provided for informational/ educational purposes only.) The analytical performance characteristics of this assay have been determined by [employer] [place], [place]. The modifications have not been cleared or approved by the FDA. This assay has been validated pursuant to the CLIA regulations and is used for clinical purposes. Test Performed by Mina Zuniga, [employer] [place], [address] [place] [address] [place] M.D., Ph.D., Director of Laboratories , [facility] [id number] Please note: Effective 05/22/2016, HPV testing will be performed using [employer]'s APTIMA test which targets mRNA. Detecting mRNA instead of DNA, as in older methods, offers significant improvements in specificity. 08/05/2019 10:5 9 AM EST us Kayli Page CNM HISTORICAL/NON ORDERABLE LABS Final Result [facility] from Last 3 Months or Most Recently Relevant to Health Maintenance Insurance STANDARD Care Teams Planer Operator Relationship Specialty Start Date End Date Tyrone Pugh MD [address] [place] [phone] PCP - General Internal Medicine 02/03/20
--- OUTSIDE RECORDS SUMMARY | 2025-05-19 17:04 | XMS_ITS | Clinical Summary ---
Author Organization [facility] it Address [address] [place] [address] Care Team Providers Care Sales Coach Name Role Phone Unavailable Primary Care Provider [...] 08/13/2022 Social Influencers of Health Screening 08/13/2022 Breast Cancer Screening 08/24/2024 08/24/20, 02/12/2019 Depression Screening 09/10/2024 COVID-19 Vaccine ( - 2023-2 5 season) 2025 Influenza Vaccine (#1) 2025 HIB Vaccines Aged [...] Procedure Name Priority Date/Time Associated Diagnosis Comments [facility] SCREENING DIGITAL Routine 08/24/2022 4:11 PM EST Encounter for screening mammogram for malignant neoplasm of breast from Last 3 Months or Most Recently Relevant to Health Maintenance Results * [facility] SCREENING DIGITAL (08/24/2022 4:11 PM EST) Anatomical Region Laterality Modality Mammography 08/24/2022 12:4 6 PM EST Narrative 08/24/2022 4:11 PM EST [facility] Diagnostic Imaging Department [address] [place] [address] Patient: JAMIA JOSEPH D.O.B./Age/Sex: 1965 - 56 - F Unit#: [id number] Location/Status: [facility]/REG CLI Mnemonic/Ordering Site: [facility] Ordering Physician: TYRONE WEIR MD [facility] Screening Digital - 08/24/22 - 1556 EXAM: [facility] Screening Digital EXAM DATE AND TIME: 08/24/2022 3:57 PM HISTORY: Screening. Maternal cousin had breast carcinoma at age 43. COMPARISON: 02/12/19, 10/22/15, 09/17/13 TECHNIQUE: CC and MLO views of both breasts were obtained using full field digital mammography. Bilateral digital breast tomosynthesis was performed in the MLO projection. Computer aided detection with [employer] 7.2-H and Blink 3D 3.1 was employed. TISSUE DENSITY: b. [...] Routine screening mammogram BILATERAL in 1 year. 05521, 20107 3341F, 7025F Dictating Physician: SHANTI TOWNSEND MD Electronically Signed by: SHANTI TOWNSEND MD Dic Date/Time: 08/24/221610 Sign date/Time: 08/24/221610 Procedure Note Shanti Townsend MD - 10/12/2023 [facility] Diagnostic Imaging Department [address] [place] [address] Patient: JAMIA JOSEPH./Age/Sex: 1965 - 56 - F Unit#: [id number] Location/Status: [facility]/REG CLI Mnemonic/Ordering Site: [facility] Ordering Physician: TYRONE WEIR MD [facility] Screening Digital - 08/24/22 - 1556 EXAM: [facility] Screening Digital EXAM DATE AND TIME: 08/24/2022 3:57 PM HISTORY: Screening. Maternal cousin had breast carcinoma at age 43. COMPARISON: 02/12/19, 10/22/15, 09/17/13 TECHNIQUE: CC and MLO views of both breasts were obtained using fullfield digital mammography. Bilateral digital breast tomosynthesis was performedin the MLO projection. Computer aided detection with Medical [employer] 7.2-H andBlink 3D 3.1 was employed. TISSUE DENSITY: b. [...] Routine screening mammogram BILATERAL in 1 year. 39483, 00965 3341F, 7025F Dictating Physician: SHANTI TOWNSEND MD Electronically Signed by: SHANTI TOWNSEND MD Dic Date/Time: 08/24/22 161 Sign date/Time: 08/24/22 161 Tyrone AVILA BI PROCEDURES Fin al Result from Last 3 Months or Most Recently Relevant to Health Maintenance
--- OUTSIDE RECORDS SUMMARY | 2025-05-19 17:04 | XMS_ITS | Encounter Summary ---
Author Organization [employer] Address [address] [facility] [address] [place] [address] Care Team Providers Care Briquette Machine Operator Name Role Phone Tyrone Pugh MD Primary Care Prov ider Encounter Details Date Type Department Care Team ([facility] Contact Info) Description 05/06/2025 Orders Only [facility] [address] [place] [address] ProviderRyan MD Social History Tobacco Use Types [...] housing situation today? I have mariecyril conner 12/08/[address] you [...] as of this encounter Plan of Treatment Not on file documented as of this encounter Procedures Procedure Name Priority Date/Time Associated Diagnosis Comments ELECTRONEURONOGRAPHY Routine 05/05/2025 4:19 PM EDT documented in this encounter Results * Electroneuronography (05/05/2025 4:19 PM EDT) us Historical Provider NEUROLOGY ORDERABLES Vesta l Result documented in this encounter Visit Diagnoses Not on filedocumented in this encounter Additional Health Concerns Assessment Noted Time PHQ-9 Depression Total Score: 21 024 1:37 PM EDT documented as of this encounter Care Teams Briquette Machine Operator Relationship Specialty Start Date End Date Tyrone Pugh MD [address] [place] [phone] PCP - General Internal Medicine 02/03/20 documented as of this encounter
--- OUTSIDE RECORDS SUMMARY | 2025-05-19 17:04 | XMS_ITS | Encounter Summary ---
Author Organization [employer] Address [address] [facility] 7[address] [place] [address] Care Team Providers Care Health Clinician Name Role Phone Tyrone Pugh MD Primary Care Prov ider Reason for Visit * Reason Onset Date Comments Nurse Triage 03/23/2025 Encounter Details Date Type Department Care Team ([facility] Contact Info) Description 03/23/2025 Telephone [facility] [address] [place] [address] Tyrone Pugh MD [address] [place] [phone] Nurse Triage Social History Tobacco Use Types [...] Telephone Encounter - Melissa Nichols RN - 03/23/2025 9:50 AM EDT Triage call Pt reports left foot/ankle pain and swelling. Pt reports pain is especially in the toeswith some discoloration present. Pt reports ability to ambulate but, with difficulty, pain and is limping. Pt is able to get a sandal on foot but, not shoe. Pt reports swelling is present even when awakens in the morning. Pt is advised to keep left foot up and supported as much as possible and apply ice to see if that helps. Pt agrees with home care suggestions. Pt is not taking pain medication and is advised tylenol/motrin are recommended and agrees. ASK apt with Dr. Olivares 03/26/25 @ 1030am.Pt was not aware of 03/18/25 apt which was missed. Pt agrees with disposition. Insurance is verified as active prior to booking. Multiple (2) protocols were used on this call. Disposition for Call: See in Office or Video Visit within 3 Days Protocol Used: Ankle Pain (Adult) Protocol-Based Disposition: See in Office or Video Visit within 3 Days Video visit not offered Positive Triage Questions: * Moderate pain (e.g., interferes with normal activities, limping) and present > 3 days * Patient wants to be seen * All higher-acuity triage questions were negative Protocol Used: Foot Pain (Adult) Protocol-Based Disposition: See in Office or Video Visit within 3 Days Video visit not offered Positive Triage Questions: * Moderate pain (e.g., interferes with normal activities, limping) and present > 3 days * Patient wants to be seen * All higher-acuity triage questions were negative Care Advice Discussed: * Reassurance and Education - Foot Pain * Foot Pain - Aggravating Factors * Pain Medicines * Reasons To Call Back - Swelling, redness, or fever occur - Severe pain not relieved by pain medicine - Pain lasts over 7 days - You become worse * Telephone Encounter - Ada Duncan - 03/23/2025 9:09 AM EDT Symptom: Foot or Ankle Pain - Not From Injury Outcome: Schedule an urgent appointment (within 1 hour) or talk to a nurse or provider soon Reason: Trouble walking The caller accepted this outcome. documented in this encounter Plan of Treatment Not on file documented as of this encounter Visit Diagnoses Not on filedocumented in this encounter Additional Health Concerns Assessment Noted Time PHQ-9 Depression Total Score: 21 024 1:37 PM EDT documented as of this encounter Care Teams Health Clinician Relationship Specialty Start Date End Date Tyrone Pugh MD [address] [place] [phone] PCP - General Internal Medicine 02/03/20 documented as of this encounter
--- OUTSIDE RECORDS SUMMARY | 2025-05-19 17:04 | XMS_ITS | Encounter Summary ---
Author Organization [employer] Address [address] [facility] 7t [place] [address] Care Team Providers Care Human Resources District Manager Name Role Phone Tyrone Pugh MD Primary Care Prov ider Encounter Details Date Type Department Care Team (Late st Contact Info) Description 12/28/2023 Orders Only [facility] MEDICINE [address] [place] [address] ProviderRyan MD Social History Tobacco Use Types Packs/Day Years Used Date Smoking Tobacco: Some Days Cigarettes Alcohol Use Standard Drinks/Week Comments Yes 0 (1 standard drink = 0.6 oz pur e alcohol) Depression Answer Date Recorded Patient Health Questionnaire-9 Score 9 12/22/2022 Housing Stability Answer Date Recorded What is your housing situation today? I have marie conner 06/30/[address] you [...] * Hm Colonoscopy (09/30/2019 12:48 PM EST) us Historical Provider HEALTH MAINTENANCE Final Result documented in this encounter Visit Diagnoses Not on filedocumented in this encounter Additional Health Concerns Assessment Noted Time PHQ-9 Depression Total Score: 9 12/23/19 23 10:26 AM EDT documented as of this encounter Care Teams Human Resources District Manager Relationship Specialty Start Date End Date Tyrone Pugh MD [address] [place] [phone] PCP - General Internal Medicine 02/03/20 documented as of this encounter
--- OUTSIDE RECORDS SUMMARY | 2025-05-19 17:04 | XMS_ITS | Encounter Summary ---
Author Organization [employer] Address [address] [facility] 7t [place] [address] Care Team Providers Care Fruit Grower Name Role Phone Tyrone Pugh MD Primary Care Prov ider Reason for Visit * Reason Onset Date Comments Nurse Triage 01/12/2025 Encounter Details Date Type Department Care Team ([facility] st Contact Info) Description 01/12/2025 Telephone [facility] MEDICINE [address] [place] [address] Tyrone Pugh MD [address] [place] [phone] Nurse Triage Social History Tobacco Use Types [...] 01/12/2025 9:44 AM EDT Triage call to [phone] rec'd message that Person wasn't able to take calls at this time , unable to leave message. Call to [phone] Pt didn't answer. Left voice message to call [facility] triage line at Pt convenience [phone] * Telephone Encounter - Nubia Pacheco - [...] documented as of this encounter Care Teams Fruit Grower Relationship Specialty Start Date End Date Tyrone Pugh MD [address] [place] [phone] PCP - General Internal Medicine 02/03/20 documented as of this encounter
--- OUTSIDE RECORDS SUMMARY | 2025-05-19 17:04 | XMS_ITS | Encounter Summary ---
Author Organization [employer] Address [address] [place] [address] 7 [place] [address] Care Team Providers Care Enginehouse Brakeman Name Role Phone Tyrone Pugh MD Primary Care Prov ider Encounter Details Date Type Department Care Team (Late st Contact Info) Description 01/05/2023 Orders Only [facility] CHC MED & PEDS [address] [place], [place] [phone] Tyrone Pugh MD [address] [place] [address] Social History Tobacco Use Types Packs/Day Years [...] documented as of this encounter Care Teams Enginehouse Brakeman Relationship Specialty Start Date End Date Tyrone Pugh MD [address] [place] [address] PCP - General Internal Medicine 02/03/20 documented as of this encounter
--- OUTSIDE RECORDS SUMMARY | 2025-05-19 17:04 | XMS_ITS | Patient Health Record ---
Author Organization [facility] Address [address] [place] [phone] Care Team Providers Care Chief Physical Therapist Name Role Phone Marco Smith Jr Reason For Referral No Information Plan Of Treatment No Information
--- OUTSIDE RECORDS SUMMARY | 2025-05-19 17:04 | XMS_ITS | Encounter Summary ---
Author Organization [employer] Address [address] [facility] 7t [place] [address] Care Team Providers Care Machine Preservative Filler Name Role Phone Tyrone Pugh MD Primary Care Prov ider Encounter Details Date Type Department Care Team ([facility] st Contact Info) Description 01/24/2024 Orders Only [facility] CHC MED & PEDS [address] [place] [address] ProviderRyan MD Social History Tobacco Use Types [...] documented as of this encounter Care Teams Machine Preservative Filler Relationship Specialty Start Date End Date Tyrone Pugh MD [address] [place] [address] PCP - General Internal Medicine 02/03/20 documented as of this encounter
--- OUTSIDE RECORDS SUMMARY | 2025-05-19 17:04 | XMS_ITS | Encounter Summary ---
Author Organization [employer] Address [address] [facility] 7 [place] [address] Care Team Providers Care Cardiac Monitor Technician Name Role Phone Tyrone Pugh MD Primary Care Prov ider Reason for Visit * Reason Onset Date Comments triage 02/01/2023 Encounter Details Date Type Department Care Team ([facility] st Contact Info) Description 02/01/2023 Telephone [facility] MEDICINE [address] [place] [address] Tyrone Pugh MD [address] [place] [phone] triage Social History Tobacco Use Types Packs/Day [...] No answer LVM to return call to [facility] triage line. Protocol Used: No Contact [...] now The caller accepted this outcome speaks hebrew documented in this encounter Plan of Treatment Not on file documented as of this encounter Visit Diagnoses Not on filedocumented in this encounter Additional Health Concerns Assessment Noted Time PHQ-9 Depression Total Score: 9 12/23/19 23 10:26 AM EDT documented as of this encounter Care Teams Cardiac Monitor Technician Relationship Specialty Start Date End Date Tyrone Pugh MD [address] [place] [phone] PCP - General Internal Medicine 02/03/20 documented as of this encounter
== END 2025-05-19 15:22 | disposition home or self-care (01) ==
LOC: HO.HOS 14:31
PROVIDERS: PCP Internal Medicine; Visit Provider Orthopaedic Surgery
DX: G56.03 Carpal tunnel syndrome, bilateral upper limbs (principal); M67.431 Ganglion, right wrist
CPT/HCPCS: 99214

== ENCOUNTER → 2025-05-19 14:30 | Outpatient (BNVA) | payer MEDICAID, SELFPAY | PROVIDERS: PCP Internal Medicine; Visit Provider Orthopaedic Surgery | DX: G56.03 Carpal tunnel syndrome, bilateral upper limbs (principal); M67.431 Ganglion, right wrist | CPT/HCPCS: 99212 ==

== ENCOUNTER 2025-06-29 10:38 | Day surgery (SDC) | payer MEDICAID, SELFPAY ==
--- OUTSIDE RECORDS SUMMARY | 2025-06-26 17:17 | XMS_ITS | Encounter Summary ---
Author Organization [employer] Address [address] [facility] 7 [place] [address] Care Team Providers Care Jewelry Manager Name Role Phone Tyrone Pugh MD Primary Care Prov ider Reason for Visit * Reason Onset Date Comments Nurse Triage 01/12/2025 Encounter Details Date Type Department Care Team ([facility] st Contact Info) Description 01/12/2025 Telephone [facility] MEDICINE [address] [place] [address] Tyrone Pugh MD [address] [place] [address] Nurse Triage Social History Tobacco Use Types [...] 01/12/2025 9:44 AM EDT Triage call to [phone] rec'd message that Person wasn't able to take calls at this time , unable to leave message. Call to [phone] Pt didn't answer. Left voice message to call [facility] triage line at Pt convenience [phone] * Telephone Encounter - Nubia Pacheco - [...] documented as of this encounter Care Teams Jewelry Manager Relationship Specialty Start Date End Date Tyrone Pugh MD [address] [place] [phone] PCP - General Internal Medicine 02/03/20 documented as of this encounter
--- OUTSIDE RECORDS SUMMARY | 2025-06-26 17:17 | XMS_ITS | Encounter Summary ---
Author Organization [employer] Address [address] [facility] 7t [place] [address] Care Team Providers Care Vp Ad Sales West Name Role Phone Tyrone Pugh MD Primary Care Prov ider Encounter Details Date Type Department Care Team (Late st Contact Info) Description 12/28/2023 Orders Only [facility] MEDICINE [address] [place] [address] ProviderRyan MD Social History Tobacco Use Types [...] documented as of this encounter Care Teams Vp Ad Sales West Relationship Specialty Start Date End Date Tyrone Pugh MD [address] [place] [phone] PCP - General Internal Medicine 02/03/20 documented as of this encounter
--- OUTSIDE RECORDS SUMMARY | 2025-06-26 17:17 | XMS_ITS | Encounter Summary ---
Author Organization [employer] Address 75 [facility] 7t [place] [address] Care Team Providers Care Chain Offbearer Name Role Phone Tyrone Pugh MD Primary Care Prov ider Encounter Details Date Type Department Care Team ([facility] Contact Info) Description 05/06/2025 Orders Only [facility] [address] [place] [address] ProviderRyan MD Social History Tobacco Use Types [...] documented as of this encounter Care Teams Chain Offbearer Relationship Specialty Start Date End Date Tyrone Pugh MD [address] [place] [address] PCP - General Internal Medicine 02/03/20 documented as of this encounter
--- OUTSIDE RECORDS SUMMARY | 2025-06-26 17:18 | XMS_ITS | Encounter Summary ---
Author Organization [employer] Address [address] [place] [address] 7 [place] [address] Care Team Providers Care Poultry Farm Laborer Name Role Phone Tyrone Pugh MD Primary Care Prov ider Encounter Details Date Type Department Care Team (Late st Contact Info) Description 01/05/2023 Orders Only [facility] CHC MED & PEDS [address] [place], [place] [phone] Tyrone Pugh MD [address] [place] [address] Social History Tobacco Use Types Packs/Day Years [...] documented as of this encounter Care Teams Poultry Farm Laborer Relationship Specialty Start Date End Date Tyrone Pugh MD [address] [place] [address] PCP - General Internal Medicine 02/03/20 documented as of this encounter
--- OUTSIDE RECORDS SUMMARY | 2025-06-26 17:18 | XMS_ITS | Encounter Summary ---
Author Organization [facility] [employer] Address 75 [facility] 7 [place] [address] Care Team Providers Care Scoop Driver Name Role Phone Tyrone Pugh MD Primary Care Prov ider Reason for Visit * Reason Onset Date Comments triage 02/01/2023 Encounter Details Date Type Department Care Team ([facility] st Contact Info) Description 02/01/2023 Telephone [facility] MEDICINE [address] [place] [address] Tyrone Pugh MD [address] [place] [address] triage Social History Tobacco Use Types Packs/Day [...] No answer LVM to return call to [facility] triage line. Protocol Used: No Contact [...] now The caller accepted this outcome speaks namibian documented in this encounter Plan of Treatment Not on file documented as of this encounter Visit Diagnoses Not on filedocumented in this encounter Additional Health Concerns Assessment Noted Time PHQ-9 Depression Total Score: 9 12/23/19 23 10:26 AM EDT documented as of this encounter Care Teams Scoop Driver Relationship Specialty Start Date End Date Tyrone Pugh MD [address] [place] [phone] PCP - General Internal Medicine 02/03/20 documented as of this encounter
--- OUTSIDE RECORDS SUMMARY | 2025-06-26 17:18 | XMS_ITS | Encounter Summary ---
Author Organization [employer] Address 75 [facility] 7t [place] [address] Care Team Providers Care Core Sucker Name Role Phone Tyrone Pugh MD Primary Care Prov ider Encounter Details Date Type Department Care Team ([facility] st Contact Info) Description 01/24/2024 Orders Only [facility] CHC MED & PEDS [address] [place] [address] ProviderRyan MD Social History Tobacco Use Types [...] documented as of this encounter Care Teams Core Sucker Relationship Specialty Start Date End Date Tyrone Pugh MD [address] [place] [address] PCP - General Internal Medicine 02/03/20 documented as of this encounter
--- OUTSIDE RECORDS SUMMARY | 2025-06-26 17:18 | XMS_ITS | Clinical Summary ---
Author Organization [employer] Address [address] [facility] 7t [place] [address] Care Team Providers Care Hydraulic Design Engineer Name Role Phone Tyrone Pugh MD Primary [...] 12:27 PM EST): Patient was seen at [facility] on 09/13 due to colitis. Was [...] Encounters Date Type Department Care Team Description 06/12/2025 Telephone [facility] MED & PEDS [address] [place] [address] Tyrone Pugh MD 05/06/2025 Orders Only [facility] [address] [place] [address] ProviderRyan MD 05/04/2025 Telephone [facility] MED & PEDS [address] [place] [address] Tyrone Pugh MD Results 03/26/2025 10:30 AM EDT Office Visit [facility] MED & PEDS [address] [place] [address] Chasity Olivares MD Left foot pain (Primary Dx); Paresthesia 03/26/2025 Results Follow-Up [facility] MED & PEDS [address] [place] [address] Chasity Olivares MD Vitamin B12/Folate, Serum Panel, Basic Metabolic Panel, D Dimer High Sensitivity, XR Foot 3+ Views Left 03/26/2025 Travel from Last 3 Months Immunizations Immunization Administration [...] - season) 2025 Influenza Vaccine (#1) 2025 , 05/24/2020, 06/17/2019, Additional history exists Depression Monitoring [...] Lower Extremities, Foot Left Radiogra phic Imaging us Chasity Olivares MD IMG XR PROCEDURES Final Res ult * D Dimer High Sensitivity (03/26/2025 11:26 AM EDT) D Dimer High Sensitivity <150 NG/ML [facility] Comment:D-DIMER HS REFERENCE RANGENote: Our assay [...] Olivares MD LAB BLOOD ORDERABLES Final Result [facility] [address] [place] [phone] * Vitamin B12/Folate, Serum Panel (03/26/2025 11:26 AM EDT) Vitamin B12 573 200 - 900 pg/mL [facility] Comment:NORMAL 200-900 PG/ML INDETERMINATE 160-199 PG/ML DEFICIENT < 160 PG/ML Folate 12.2 > or = 4.0 ng/mL [facility] Comment:Reference Values:> o r = 4.0 ng/mL< 4.0 ng/mL suggests folate deficiency Methotrexate, aminopterin and folinic acid(leucovorin) are chemotherapeutic agents whose molecularstructures are similar to folate; therefore, the Architectfolate assay cannot be used for patients using these drugs. Blood Venous blood specimen / Unknown 03/26/2025 11:26 AM EDT 03/26/2025 12:22 PM EDT Chasity Olivares MD LAB BLOOD ORDERABLES Final Result [facility] [address] [place] [phone] * (ABNORMAL) Basic Metabolic Panel (03/26/2025 11:26 AM EDT) Pathologist [facility] Sodium 137 135 - 145 mmol/L [facility] Potassium 4.2 3.3 - 5.1 mmol/L [facility] Chloride 101 96 - 108 mmol/L [facility] Carbon Dioxide 28 22 - 29 mmol/L [facility] Anion Gap 12 12 - 20 [facility] Urea Nitrogen (BUN) 8(L) 9 - 16 mg/dL [facility] Creatinine, Serum 0.88 0.5 - 1.4 mg/dL [facility] Estimated Glomerular Filt Rate >60 [facility] Comment:Chronic Kidney Disea se: Estimated GFR < 60 mL/min/1.12b4Ksewal Kidney Disease: Estimated GFR < 15 mL/min/1.73m2 Glucose 90 60 - 115 mg/dL [facility] Calcium 9.9 8.4 - 10.2 mg/dL [facility] Blood Venous blood specimen / Unknown 03/26/2025 11:26 AM EDT 03/26/2025 12:22 PM EDT us Chasity Olivares MD LAB BLOOD ORDERABLES Final Result Performing Organization Address [facility]/ZIP Co de Phone Number [facility] [address] [place] [phone] * (ABNORMAL) Lipid Panel, Standard (07/23/2024 9:59 AM EST) Triglycerides 358(H) <150 mg/dL [facility] Comment:Slight Lipemia.Julio able Triglyceride: less than 150 mg/dLBorderline High Triglyceride 150-199 mg/dLHigh Triglyceride: 200-499 mg/dLVery High Triglyceride: greater than or equal to 5OO mg/dL Cholesterol 241(H) <200 mg/dL [facility] Comment:Desirable Cholestero l: less than 200 mg/dLBorderline High Cholesterol: 200-239 mg/dLHigh Cholesterol: greater than 239 mg/dL LDL Cholesterol Calculated 129(H) <100 mg/dL [facility] Comment:Desirable LDL: less than 100 mg/dLNear Optimal/Above Optimal LDL: 110- 129 mg/dLBorderline High LDL: 130-159 mg/dLHigh LDL: 160-189 mg/dLVery High LDL: greater than or equal to 190 mg/dL HDL Cholesterol 41 >40 mg/dL [facility] Comment:Desirable HDL: great er than 40 mg/dL Note: This HDL assay may give artificially low results in patients with liver disease. Blood Venous blood specimen / Unknown 07/23/2024 9:59 AM EST 07/23/2024 2:19 PM EST us Tyrone Brito MD LAB BLOOD ORDERABL ES Final Result Performing Organization Address City/[facility]/ZIP Co de Phone Number [facility] [address] [place] [phone] * HIV-1 RNA, Quantitative, Real-Time PCR with Reflex to Genotype (RTI, PI, Integrase) (12/27/2022 10:13 AM EDT) Pathologist [facility] HIV 1 RNA, QN PCR NOT DETECTED copies/mL [facility], HIV 1 RNA, QN PCR NOT DETECTED Log copies/mL [facility], Comment: REFERENCE RANGE: NOT DETECTED copies/mL NOT DETECTED Log copies/mL This test was performed using Real-Time Polymerase Chain Reaction. Reportable range is 20 to 10,000,000 copies/mL (1.30-7.00 Log copies/mL). 12/27/2022 10:1 3 AM EDT 12/27/2022 10:15 AM EDT Narrative [facility] - 12/30/2022 10:59 PM EDT FASTING:YES PATIENT REFUSED SOME TESTING; PATIENT ENCOURAGED TO RETURN. FASTING: YES Tyrone Brito MD LAB BLOOD ORDERABL ES Final Result [facility] [address], [place] [address] [facility], [address] [place] [address] * Hepatitis C Antibody with Reflex to HCV, RNA, Quantitative, Real-Time PCR (12/27/2022 10:13 AM EDT) Pathologist [facility] Hepatitis C Antibody NON-REACT LISSY NON-REACT LISSY [facility] [place] [facility] Index 0.07 <1.00 [facility] [place] Results [facility] Comment: HCV antibody was non-reactive. There is no laboratory evidence of HCV infection. In most cases, no further action is required. However, if recent HCV exposure is suspected, a test for HCV RNA (test code 47513) is suggested. For additional information please refer to http://education.Schvey/faq/DTU39g3 (This link is being provided for informational/ educational purposes only.) Blood Venous blood specimen / Unknown 12/27/2022 10:13 AM EDT 12/27/2022 10:15 AM EDT Narrative [facility] - 12/30/2022 10:59 PM EDT FASTING:YES PATIENT REFUSED SOME TESTING; PATIENT ENCOURAGED TO RETURN. FASTING: YES Result [facility] Tyrone Brito MD LAB BLOOD ORDERABL ES Final Result [facility] [address], [place] [address] [facility] [address] [place] [address] * Hm Mammography (08/25/2022) Anatomical Region Laterality Modality Other Result [facility] Historical Provider MD HEALTH MAINTENANCE Final Result * Hm Colonoscopy (09/30/2019 12:48 PM EST) Result [facility] Historical Provider HEALTH MAINTENANCE Final Result * HPV mRNA E6/E7 (08/05/2019 10:59 AM EST) HPV mRNA E6/E7 Not Detected NOT DETECTED [facility] Comment: This test was performed using the APTIMA(R) HPV Assay ([employer] This assay detects E6/E7 viral messenger RNA (mRNA) from 14 high-risk HPV types (16,18,31,33,35,39,45,51, 52,56,58,59,66,68). For additional information please refer to: http://education.[employer].ioSemantics/faq/KYB013k5 (This link is being provided for informational/ educational purposes only.) The analytical performance characteristics of this assay have been determined by [employer] [place], [place]. The modifications have not been cleared or approved by the FDA. This assay has been validated pursuant to the CLIA regulations and is used for clinical purposes. Test Performed by [facility] [employer], [address] [place] [address] [place] M.D., Ph.D., Director of Laboratories , CLIA [id number] Please note: Effective 05/22/2016, HPV testing will be performed using [employer]'s APTIMA test which targets mRNA. Detecting mRNA instead of DNA, as in older methods, offers significant improvements in specificity. 08/05/2019 10:5 9 AM EST Kayli SALASM HISTORICAL/NON ORDERABLE LABS Final Result [facility] [address] from Last 3 Months or Most Recently Relevant to Health Maintenance [place] [address] [place] [address] STANDARD Care Teams Hydraulic Design Engineer Relationship Specialty Start Date End Date Tyrone Pugh MD [address] [place] [phone] PCP - General Internal Medicine 02/03/20
--- OUTSIDE RECORDS SUMMARY | 2025-06-26 17:18 | XMS_ITS | Patient Health Record ---
Author Organization [facility] Address [address] [place] [phone] Care Team Providers Care Child Psychiatrist Name Role Phone Marco Smith Jr Reason For Referral No Information Plan Of Treatment No Information
[2025-06-29 05:39] VITALS: BMI 22.7
--- NOTE | 2025-06-29 10:20 | PC.NURSE ---
pt no show called and left message
[2025-06-29 11:17] VITALS: BP 134/67; PULSE 54; RESP 18; TEMP 36.1; O2SAT 97
--- NOTE | 2025-06-29 11:32 | P.OP_ITS ---
Operative Note Operative Note Date of Service: 06/29/25 Narrative: Preop diagnosis: 1. Left Carpal tunnel syndrome Postop diagnosis: same Procedure: 1. Left Carpal tunnel release Surgeon: Hailee Segovia MD Account Services Coordinator: Erwin TERRAZAS Anesthesia: local block using 1% lidocaine with epinephrine Findings: Thickened transverse carpal ligament. EBL: Less than 5 mL Specimens: None Complications: None Disposition: Brought to recovery room in stable condition Plan: Follow-up for 10-14 days for wound check and suture removal Indications: The patient is 59 years old, with left carpal tunnel syndrome that has been unresponsive to nonoperative management. The risks and benefits of operative treatment including but not limited to risk of damage to blood vessels, nerves, tendons, infection, persistent pain, persistent symptoms, or possible need for additional surgery were discussed with the patient and the patient wishes to proceed with surgery. Procedure: Once consent was obtained a local block was performed using a combination of 1% lidocaine with epinephrine. The patient was then brought back to the operating suite and placed on the operative table in supine position. The left upper extremity was prepped and draped in a standard surgical fashion. Once assured that we had a good block, a 2.0 cm longitudinal incision was made centered over the carpal tunnel. The incision was made through the skin to the subcutaneous tissues using a #15 blade. Dissection was made down to the level of the transverse carpal ligament with care being taken to protect the palmar cutaneous nerve. Once the transverse carpal ligament was clearly visualized, a longitudinal incision was made in the transverse carpal ligament 1st using a #15 blade, then using tenotomy scissors under direct visualization. Care was taken to look for and protect the motor branch of the median nerve when seen in this area. Once satisfied with our carpal tunnel release the wound was copiously irrigated with normal saline and hemostasis was obtained with a brief period of local pressure. The skin edges were reapproximated with some 5.0 nylon suture material and a sterile dressing was applied. The patient appears to have tolerated the procedure well and with no complications. All digits were well vascularized at the conclusion of the case.
--- NOTE | 2025-06-29 11:32 | MHC.SHP ---
Pre-Procedural Eval Section A - 24 Hr Update-Section A only Date of Service: 06/29/25 The patient is an INPATIENT: No Changes since office visit: No Cold of Flu in the past 2 weeks, No New Medical Problems, No Changes in Medication and No Patient answered all questions The patient has been examined within 24 hours of the surgical procedure. The History & Physical has been completed within 30 days and I have reviewed it.: Yes Section B - Complete if H&P > 30 days Chief Complaint: Carpal tunnel syndrome, left upper limb Allergies: Allergies Allergy/AdvReac Type Severity Reaction Status Date / Time No Known Allergies Allergy Verified 01/07/25 14:00 Plan Diagnosis/Plan: Unchanged I have reviewed the history and physical and performed a pertinent physical examination on my patient. No changes have occurred unless specified. Time Spent With Patient Time: Total time managing care of this patient today ____ minutes.
[2025-06-29 12:44] VITALS: BP 133/68; PULSE 57; RESP 16; TEMP 36.1; O2SAT 100
== END 2025-06-29 12:47 | disposition home or self-care (01) ==
PROVIDERS: PCP Internal Medicine; Visit Provider Orthopaedic Surgery
PROC: (CPT 64721; principal; 2025-06-29 10:00)
DX: G56.02 Carpal tunnel syndrome, left upper limb (principal); R20.0 Anesthesia of skin; R20.2 Paresthesia of skin; M79.642 Pain in left hand; M67.431 Ganglion, right wrist; K21.9 Gastro-esophageal reflux disease without esophagitis; E07.9 Disorder of thyroid, unspecified; F32.A Depression, unspecified; Z56.0 Unemployment, unspecified; Z87.891 Personal history of nicotine dependence
CPT/HCPCS: 64721; J0165; J2003; J2004

== ENCOUNTER → 2025-06-29 10:38 | Outpatient (BNV) | payer MEDICAID, SELFPAY | PROVIDERS: PCP Internal Medicine; Visit Provider Orthopaedic Surgery | DX: G56.02 Carpal tunnel syndrome, left upper limb (principal) | CPT/HCPCS: 64721 ==

== ENCOUNTER 2025-07-22 13:05 | Outpatient (AMB) | payer MEDICAID, SELFPAY ==
--- OUTSIDE RECORDS SUMMARY | 2025-07-20 10:00 | XMS_ITS | Encounter Summary ---
Author Organization [employer] Address [address] [facility] 7t [place] [address] Care Team Providers Care Human Resources Trainer Name Role Phone Tyrone Pugh MD Primary Care Prov ider Reason for Visit * Reason Comments Hand Pain Encounter Details Date Type Department Care Team (Late st Contact Info) Description 07/20/2025 10:00 AM EST Office Visit [facility] [address] [place] [address] [phone] Augustine Haro MD [address] [place], [place] [phone] History of carpal tunnel surgery of left wrist (Primary Dx); Hypertension, unspecified type Social History Tobacco Use Types Packs/Day Years [...] AM EDT documented as of this encounter Last Filed Vital Signs Vital Sign Reading Time Taken Comments Blood Pressure 157/78 07/20/2025 9:27 AM EST Pulse 81 07/20/2025 9:27 AM EST Temperature 36.7 C (98 F) 07/20/2025 9:27 AM EST Respiratory Rate 16 07/20/2025 9:27 AM EST Oxygen Saturation 98% 07/20/2025 9:27 AM EST Inhaled Oxygen Concentration - - Weight 63 kg (139 lb) 07/20/2025 9:27 AM EST Height - - Body Mass Index 23.67 03/26/2025 10:31 AM EDT documented in this encounter Progress Notes * Augustine Haro MD - 07/20/2025 10:00 AM EST Subjective Patient ID: Jamia Anderson is a 59 y.o. female. On June 29, Jamia underwent left carpal tunnel release by Dr. Segovia of [facility]. Shecame to walk-in clinic today because she states that 4 days ago she noticed small amounts of pus coming from the suture holes, and the postop pain increased. She states postop visit was scheduled 1 week ago but patient had to reschedule, and is not sure when her rescheduled appointment is. Denies fever or chills. Lives with sons. Does not smoke cigarettes. Patient Active Problem List Diagnosis Date Noted Hip pain, chronic, left 08/22/2024 Primary hypertension 02/11/2024 Screening for cervical cancer 09/23/2023 Screening for colon cancer 09/23/2023 Hospital discharge follow-up 09/19/2023 Elevated blood pressure reading 05/23/2023 Mass of left wrist 04/13/2023 Toe pain, left 04/13/2023 Mixed hyperlipidemia 12/22/2022 Acquired hypothyroidism 12/22/2022 History of Helicobacter pylori infection 12/22/2022 Trigger middle finger of right hand 12/22/2022 Ganglion cyst of tendon sheath of left hand 12/22/2022 Mood disorder (CMS/HCC) 01/28/2019 The following portions of the chart were reviewed this encounter and updated as appropriate: Tobacco Allergies Meds Problems Med Hx Surg Hx Fam Hx Review of Systems Constitutional: Negative for fever. Respiratory: Negative for shortness of breath. Cardiovascular: Negative for chest pain. Gastrointestinal: Negative for abdominal pain. Musculoskeletal: Positive for arthralgias. Skin: Negative for rash. Neurological: Negative for headaches. Objective Physical Exam Vitals and nursing note reviewed. Constitutional: Appearance: Normal appearance. HENT: Head: Normocephalic and atraumatic. Nose: Nose normal. Eyes: Conjunctiva/sclera: Conjunctivae normal. Pupils: Pupils are equal, round, and reactive to light. Cardiovascular: Pulses: Radial pulses are 2+ on the left side. Pulmonary: Effort: Pulmonary effort is normal. Musculoskeletal: Comments: Full range of motion of left wrist with some discomfort. Skin: General: Skin is warm and dry. Comments: Left wrist, volar surface: Sutures are visible in the surgical wound. There is no drainage at this time. There is mild tenderness to palpation with minimal erythema surrounding the sutures. Neurological: Mental Status: She is alert. Sensory: Sensation is intact. Motor: Motor function is intact. Gait: Gait is intact. Psychiatric: Mood and Affect: Mood and affect normal. Behavior: Behavior normal. Procedures Assessment/Plan Diagnoses and all orders for this visit: History of carpal tunnel surgery of left wrist We attempted to call [facility] several times, but have only been able to reach an answering machine. We advised going to the [facility] office now, and if they are unable to see her to go to the emergency department. Hypertension, unspecified type Has not taken losartan yet today. States home BP readings are in normal range. documented in this encounter Plan of Treatment Not on file documented as of this encounter Visit Diagnoses Diagnosis History of carpal tunnel surgery of left wrist- Primary Hypertension, unspecified type documented in this encounter Additional Health Concerns Assessment Noted Time PHQ-9 Depression Total Score: 21 024 1:37 PM EDT documented as of this encounter Care Teams Human Resources Trainer Relationship Specialty Start Date End Date Tyrone Pugh MD [address] [place] [phone] PCP - General Internal Medicine 02/03/20 documented as of this encounter
--- NOTE | 2025-07-22 13:07 | MHC.OFFVIS ---
Vital Signs 07/22/25 13:22 Height 5 ft 4 in Weight 132 lb BMI 22.7 Intake Visit Reasons: PO LT CTR 06/29/25 AR Intake Note: Jamia is a 59 year old right hand dominant female who presents today for a Post-Operative Visit status post Left Carpal Tunnel Release performed by Dr. Segovia on 06/29/25. Patient reports she was unable to keep her previous PO appointments due to transportation issues. She is now aware we provide Lyft Rides. There were only 3 visible sutures that were removed by NINI Ibarra. Allergies No Known Allergies Allergy (Verified 07/22/25 13:37) HPI HPI PO LT CTR 06/29/25 AR: Details: Jamia is a 59 year old right hand dominant female who presents today for a Post-Operative Visit status post Left Carpal Tunnel Release performed by Dr. Segovia on 06/29/25. Patient reports she was unable to keep her previous PO appointments due to transportation issues. She is now aware we provide Lyft Rides. The patient states that her hand has gotten quite itchy and bothersome due to the sutures remaining in There were only 3 visible sutures at this time, [facility] Medical History (Updated 05/19/25 @ 14:54 by Umair Chase) GERD (gastroesophageal reflux disease) Thyroid disease Depressed Surgical History History of esophagogastroduodenoscopy (EGD) Hx of colonoscopy Social History Patient Tobacco Use Status: Former Tobacco user Tobacco use type: Cigarette Current occupational status: unemployed Current occupation: rt hand Review of Systems Const All systems reviewed & are unremarkable except as noted in HPI and below Physical Exam Vital Signs: BMI result Body Mass Index 22.7 Extrem Other: Patient is alert, oriented, and in no acute distress. Neuro: Normal sensation of the tips of all digits of the left hand at this time Vascular: Cap refill brisk Pain: Minimal tenderness to palpation about the incision site on volar left wrist ROM: Patient is able to make a closed fist and extend all digits of the left hand fully Skin: Well healed incision site of the left wrist Skin has healed over the 3 remaining sutures of the left wrist General: No ecchymosis, erythema, or evidence of infection. Psych: Appears grossly normal Affect normal Attitude cooperative Assessment & Plan Assessment & Plan (1) Carpal tunnel syndrome of left wrist: Code(s): G56.02 - Carpal tunnel syndrome, left upper limb Category: Medical Plan 1. Status post left carpal tunnel release DOS 06/29/2025 With good symptom resolution postoperatively Patient appears to be recovering well postoperatively Patient is educated about the typical recovery course Despite skin growth over remaining sutures, they are able to be removed without further issue 2 lb weight limit times one-week Follow-up as needed Coding Level of Care Code Global (33998) Diagnoses Carpal tunnel syndrome of left wrist G56.02
[2025-07-22 13:22] VITALS: BMI 22.7
--- OUTSIDE RECORDS SUMMARY | 2025-07-22 15:51 | XMS_ITS | Encounter Summary ---
Author Organization [employer] Address [address] [place] [address] 7 [place] [address] Care Team Providers Care Curriculum Developer Name Role Phone Tyrone Pugh MD Primary Care Prov ider Encounter Details Date Type Department Care Team (Late st Contact Info) Description 01/05/2023 Orders Only [facility] [address] [place], [place] [phone] Tyrone Pugh MD [address] [place] [address] Social History Tobacco Use Types Packs/Day Years [...] documented as of this encounter Care Teams Curriculum Developer Relationship Specialty Start Date End Date Tyrone Pugh MD [address] [place] [address] PCP - General Internal Medicine 02/03/20 documented as of this encounter
--- OUTSIDE RECORDS SUMMARY | 2025-07-22 15:51 | XMS_ITS | Clinical Summary ---
Author Organization [employer] Address [address] [facility] 7t [place] [address] Care Team Providers Care Bioinformaticist Name Role Phone Tyrone Pugh MD Primary [...] 12:27 PM EST): Patient was seen at [facility] on 09/13 due to colitis. Was [...] Encounters Date Type Department Care Team Description 07/20/2025 10:00 AM EST Office Visit [facility] [address] [place] [phone] Augustine Haro MD History of carpal tunnel surgery of left wrist (Primary Dx); Hypertension, unspecified type 07/20/2025 Travel 06/12/2025 Telephone [facility] [address] [place] [address] Tyrone Pugh MD 05/06/2025 Orders Only [place] [employer] [facility] [address] [place] [address] ProviderRyan MD 05/04/2025 Telephone [facility] [address] [place] [address] Tyrone Pugh MD Results from Last 3 Months Immunizations Immunization Administration [...] (139 lb) 07/20/2025 9:27 AM EST Height 163.2 cm (5' 4.25 ) 03/26/2025 10:31 AM E DT Body Mass Index 23.67 03/26/2025 10:31 AM EDT Plan of Treatment [...] 08/05/2024 08/05/2019 Mammogram 08/25/2024 08/25/2022 COVID-19 Vaccine ( - season) 2025 Influenza Vaccine (#1) 2025 , 05/24/2020, 06/17/2019, Additional history exists Depression Monitoring 06/09/2025 12/08/2024, 024 Alcohol/Substance Use Screening 12/08/2025 12/08/2024 SDOH Screening 12/08/2025 12/08/2024 Tobacco Screening 07/20/2026 07/20/2025 DTaP/Tdap/Td Vaccines (3 - Td or Tdap) [...] Comments ELECTRONEURONOGRAPHY Routine 05/05/2025 4:19 PM EDT LIPID PANEL, STANDARD Routine 07/23/2024 9:59 AM [...] Provider NEUROLOGY ORDERABLES Vesta l Result * (ABNORMAL) Lipid Panel, Standard (07/23/2024 9:59 AM EST) Triglycerides 358(H) <150 mg/dL [facility] Comment:Slight Lipemia.Julio able Triglyceride: less than 150 mg/dLBorderline High Triglyceride 150-199 mg/dLHigh Triglyceride: 200-499 mg/dLVery High Triglyceride: greater than or equal to 5OO mg/dL Cholesterol 241(H) <200 mg/dL [facility] Comment:Desirable Cholestero l: less than 200 mg/dLBorderline High Cholesterol: 200-239 mg/dLHigh Cholesterol: greater than 239 mg/dL LDL Cholesterol Calculated 129(H) <100 mg/dL [facility] Comment:Desirable LDL: less than 100 mg/dLNear Optimal/Above Optimal LDL: 110- 129 mg/dLBorderline High LDL: 130-159 mg/dLHigh LDL: 160-189 mg/dLVery High LDL: greater than or equal to 190 mg/dL HDL Cholesterol 41 >40 mg/dL [facility] Comment:Desirable HDL: great er than 40 mg/dL Note: This HDL assay may give artificially low results in patients with liver disease. Blood Venous blood specimen / Unknown 07/23/2024 9:59 AM EST 07/23/2024 2:19 PM EST Tyrone Brito MD LAB BLOOD ORDERABL ES Final Result [facility] [address] [place] [phone] * HIV-1 RNA, Quantitative, Real-Time PCR with Reflex to Genotype (RTI, PI, Integrase) (12/27/2022 10:13 AM EDT) HIV 1 RNA, QN PCR NOT DETECTED copies/mL [facility] [employer] [facility], HIV 1 RNA, QN PCR NOT DETECTED Log copies/mL [facility]/N [facility]ols [facility], Comment: REFERENCE RANGE: NOT DETECTED copies/mL NOT DETECTED Log copies/mL This test was performed using Real-Time Polymerase Chain Reaction. Reportable range is 20 to 10,000,000 copies/mL (1.30-7.00 Log copies/mL). 12/27/2022 10:1 3 AM EDT 12/27/2022 10:15 AM EDT Narrative [facility] - 12/30/2022 10:59 PM EDT FASTING:YES PATIENT REFUSED SOME TESTING; PATIENT ENCOURAGED TO RETURN. FASTING: YES Tyrone Brito MD LAB BLOOD ORDERABL ES Final Result [facility] [address] [place] [address], [place] [address] [facility], [address] [place] [address] * Hepatitis C Antibody with Reflex to HCV, RNA, Quantitative, Real-Time PCR (12/27/2022 10:13 AM EDT) Hepatitis C Antibody NON-REACT LISSY NON-REACT LISSY [facility] [place] [employer] Index 0.07 <1.00 [facility] [place] [employer] Comment: HCV antibody was non-reactive. There is no laboratory evidence of HCV infection. In most cases, no further action is required. However, if recent HCV exposure is suspected, a test for HCV RNA (test code 96879) is suggested. For additional information please refer to http://education.Quintesocial/faq/DSW85j1 (This link is being provided for informational/ educational purposes only.) Blood Venous blood specimen / Unknown 12/27/2022 10:13 AM EDT 12/27/2022 10:15 AM EDT Narrative [facility] - 12/30/2022 10:59 PM EDT FASTING:YES PATIENT REFUSED SOME TESTING; PATIENT ENCOURAGED TO RETURN. FASTING: YES Tyrone Brito MD LAB BLOOD ORDERABL ES Final Result [facility] [address] [facility], [facility], [place] [address] [facility]Talk [facility] [address] [place] [address] * Hm Mammography (08/25/2022) Anatomical Region Laterality Modality Other Historical Provider MD HEALTH MAINTENANCE Final Result * Hm Colonoscopy (09/30/2019 12:48 PM EST) Historical Provider MD HEALTH MAINTENANCE Final Result * HPV mRNA E6/E7 (08/05/2019 10:59 AM EST) HPV mRNA E6/E7 Not Detected NOT DETECTED [facility] Comment: This test was performed using the APTIMA(R) HPV Assay ([employer] This assay detects E6/E7 viral messenger RNA (mRNA) from 14 high-risk HPV types (16,18,31,33,35,39,45,51, 52,56,58,59,66,68). For additional information please refer to: http://education.Quintesocial/faq/ZDT112m4 (This link is being provided for informational/ educational purposes only.) The analytical performance characteristics of this assay have been determined by [employer] [place], [place]. The modifications have not been cleared or approved by the FDA. This assay has been validated pursuant to the CLIA regulations and is used for clinical purposes. Test Performed by [employer], [facility], [address] [place] [address] [place] M.D., Ph.D., Director of Laboratories , CLIA [id number] Please note: Effective 05/22/2016, HPV testing will be performed using [employer]'s APTIMA test which targets mRNA. Detecting mRNA instead of DNA, as in older methods, offers significant improvements in specificity. 08/05/2019 10:5 9 AM EST Kayli Page CNM HISTORICAL/NON ORDERABLE LABS Final Result [facility] [address] from Last 3 Months or Most Recently Relevant to Health Maintenance Insurance Care Teams Bioinformaticist Relationship Specialty Start Date End Date Tyrone Pugh MD [address] [place] [phone] PCP - General Internal Medicine 02/03/20
--- OUTSIDE RECORDS SUMMARY | 2025-07-22 15:51 | XMS_ITS | Encounter Summary ---
Author Organization [employer] Address [address] [facility] 7t [place] [address] Care Team Providers Care Capability Lead Name Role Phone Tyrone Pugh MD Primary Care Prov ider Encounter Details Date Type Department Care Team ([facility] Contact Info) Description 05/06/2025 Orders Only [facility] [address] [place] [address] ProviderRyan MD Social History Tobacco Use Types [...] documented as of this encounter Care Teams Capability Lead Relationship Specialty Start Date End Date Tyrone Pugh MD [address] [place] [phone] PCP - General Internal Medicine 02/03/20 documented as of this encounter
--- OUTSIDE RECORDS SUMMARY | 2025-07-22 15:51 | XMS_ITS | Encounter Summary ---
Author Organization [employer] Address [address] [facility] 7t [place] [address] Care Team Providers Care Cover Assembler Name Role Phone Tyrone Pugh MD Primary Care Prov ider Reason for Visit * Reason Onset Date Comments Nurse Triage 01/12/2025 Encounter Details Date Type Department Care Team ([facility] st Contact Info) Description 01/12/2025 Telephone [facility] [address] [place] [address] Tyrone Pugh MD [address] [place] [phone] Nurse Triage Social History Tobacco Use Types [...] 01/12/2025 9:44 AM EDT Triage call to [phone] rec'd message that Person wasn't able to take calls at this time , unable to leave message. Call to [phone] Pt didn't answer. Left voice message to call [facility] triage line at Pt convenience [phone] * Telephone Encounter - Nubia Pacheco - [...] documented as of this encounter Care Teams Cover Assembler Relationship Specialty Start Date End Date Tyrone Pugh MD [address] [place] [address] PCP - General Internal Medicine 02/03/20 documented as of this encounter
--- OUTSIDE RECORDS SUMMARY | 2025-07-22 15:51 | XMS_ITS | Encounter Summary ---
Author Organization [employer] Address [address] [facility] 7 [place] [address] Care Team Providers Care Certified Phlebotomist Name Role Phone Tyrone Pugh MD Primary Care Prov ider Reason for Visit * Reason Onset Date Comments triage 02/01/2023 Encounter Details Date Type Department Care Team ([facility] st Contact Info) Description 02/01/2023 Telephone [facility] MEDICINE [address] [place] [phone] Tyrone Pugh MD [address] [place] [phone] triage Social History Tobacco Use Types Packs/Day [...] No answer LVM to return call to [facility] triage line. Protocol Used: No Contact or Duplicate Contact Call (Adult) Protocol-Based Disposition: No Contact Call Positive Triage Question: * Message left on identified voicemail * All higher-acuity triage questions were negative * Telephone Encounter - Matthieu Nbole - 02/01/2023 11:15 AM EDT Symptoms: Sore Throat, Earache Outcome: Schedule an urgent appointment (within 1 hour) or talk to a nurse or provider soon Reason: Severe pain now The caller accepted this outcome speaks chinese documented in this encounter Plan of Treatment Not on file documented as of this encounter Visit Diagnoses Not on filedocumented in this encounter Additional Health Concerns Assessment Noted Time PHQ-9 Depression Total Score: 9 12/23/19 23 10:26 AM EDT documented as of this encounter Care Teams Certified Phlebotomist Relationship Specialty Start Date End Date Tyrone Pugh MD [address] [place] [address] PCP - General Internal Medicine 02/03/20 documented as of this encounter
--- OUTSIDE RECORDS SUMMARY | 2025-07-22 15:51 | XMS_ITS | Patient Health Record ---
Author Organization [facility] Address [address] [place] [phone] Care Team Providers Care Rand Sewer Name Role Phone Marco Smith Jr Reason For Referral No Information Plan Of Treatment No Information
--- OUTSIDE RECORDS SUMMARY | 2025-07-22 15:51 | XMS_ITS | Encounter Summary ---
Author Organization [employer] Address [address] [facility] 7t [place] [address] Care Team Providers Care Senior Project Controls Specialist Name Role Phone Tyrone Pugh MD Primary Care Prov ider Encounter Details Date Type Department Care Team (Latest Contact Info) Description 07/20/2025 Travel Social History Tobacco Use Types Packs/Day Years [...] documented as of this encounter Care Teams Senior Project Controls Specialist Relationship Specialty Start Date End Date Tyrone Pugh MD [address] [place] [address] PCP - General Internal Medicine 02/03/20 documented as of this encounter
--- OUTSIDE RECORDS SUMMARY | 2025-07-22 15:51 | XMS_ITS | Encounter Summary ---
Author Organization [employer] Address [address] [facility] 7t [place] [address] Care Team Providers Care Optometric Tech Name Role Phone Tyrone Pugh MD Primary Care Prov ider Encounter Details Date Type Department Care Team ([facility] st Contact Info) Description 01/24/2024 Orders Only [facility] [address] [place] [address] ProviderRyan MD Social History Tobacco Use Types [...] documented as of this encounter Care Teams Optometric Tech Relationship Specialty Start Date End Date Tyrone Pugh MD [address] [place] [address] PCP - General Internal Medicine 02/03/20 documented as of this encounter
--- OUTSIDE RECORDS SUMMARY | 2025-07-22 15:51 | XMS_ITS | Encounter Summary ---
Author Organization [email or web address] Address [address] [facility] 7t [place] [address] Care Team Providers Care Quantitative Research Analyst Name Role Phone Tyrone Pugh MD Primary Care Prov ider Encounter Details Date Type Department Care Team (Late st Contact Info) Description 12/28/2023 Orders Only [facility] MED[facility]INE [address] [place] [address] ProviderRyan MD Social History Tobacco Use Types [...] documented as of this encounter Care Teams Quantitative Research Analyst Relationship Specialty Start Date End Date Tyrone Pugh MD [address] [place] [phone] PCP - General Internal Medicine 02/03/20 documented as of this encounter
== END 2025-07-22 13:34 | disposition home or self-care (01) ==
LOC: HO.HOS 13:05
PROVIDERS: PCP Internal Medicine
DX: G56.02 Carpal tunnel syndrome, left upper limb (principal)
CPT/HCPCS: 99024

== ENCOUNTER → 2025-07-22 13:05 | Outpatient (BNVA) | payer MEDICAID, SELFPAY | PROVIDERS: PCP Internal Medicine | DX: Z47.89 Encounter for other orthopedic aftercare (principal); G56.02 Carpal tunnel syndrome, left upper limb | CPT/HCPCS: 99212 ==